=== PATIENT | male | born 1940 | race Caucasian/White ===

== ENCOUNTER 2018-05-14 08:19 | Day surgery (SDC) | payer MEDICARE ==
[~2018-05-14 08:19] MED LIST: ALLOPURINOL100 MG PO; ASPIRIN EC81 MG PO; ATENOLOL25 MG PO; ATIVAN0.5 MG PO; BACITRACIN500 MG/GM OD; ENALAPRIL2.5 MG PO; FLONASE NASAL50 MCG; GABAPENTIN100 MG PO; JANUVIA50 MG PO; KEFLEX500 MG PO; LIPITOR20 M1 PO; METFORMIN500 MG PO; PROAIR HFA IN; TRESIBA FL100 UNIT/M
[2018-05-14 10:47] VITALS: BP 144/67
== END 2018-05-14 11:03 | disposition home or self-care (01) ==
LOC: ENDO 08:19
PROVIDERS: ATTEND Surgery
PROC: 0DBP8ZX Excision of Rectum, Via Natural or Artificial Opening Endoscopic, Diagnostic (ICD-10-PCS; principal; 2018-05-14)
PROC: 0DBL8ZX Excision of Transverse Colon, Via Natural or Artificial Opening Endoscopic, Diagnostic (ICD-10-PCS; 2018-05-14)
PROC: 0DBN8ZX Excision of Sigmoid Colon, Via Natural or Artificial Opening Endoscopic, Diagnostic (ICD-10-PCS; 2018-05-14)
DX: C20 Malignant neoplasm of rectum (principal); D12.5 Benign neoplasm of sigmoid colon; D12.3 Benign neoplasm of transverse colon; E11.9 Type 2 diabetes mellitus without complications

== ENCOUNTER 2018-08-07 06:09 | Emergency (ER) | payer MEDICARE ==
[~2018-08-07] VITALS: Ht 175.3 cm; Wt 100.0 kg
[~2018-08-07 06:09] MED LIST changes: -TRESIBA FL100 UNIT/M; +TRESIBA FL100 UNIT/M SC
[2018-08-07 07:10] LABS: HEMATOCRIT 42.4 % (39.0-50.0); HEMOGLOBIN 14.2 g/dl (14.0-18.0); IMMATURE GRANULOCYTES 0.3 % (0.0-5.0); MEAN CELL VOLUME 100.5 fL CALC (80.0-100.0); MEAN CORPUSCULAR HGB 33.6 pG CALC (26.0-32.0); MEAN CORPUSCULAR HGB CONC 33.5 g/L CALC (32.0-36.0); NEUT# 4.49 thou/uL (1.82-7.42); RED BLOOD COUNT 4.22 mill/uL (4.70-6.10); RED CELL DISTRI WIDTH 12.4 % (11.5-15.5)
[2018-08-07 07:11] LABS: URINE BILIRUBIN - DIPSTICK NEGATIVE (NEGATIVE); URINE BLOOD DIPSTICK NEGATIVE (NEGATIVE); URINE COLOR YELLOW; URINE GLUCOSE - DIPSTICK NEGATIVE (NEGATIVE); URINE KETONE NEGATIVE (NEGATIVE); URINE LEUK ESTERASE NEGATIVE (NEGATIVE); URINE NITRITE - DIPSTICK NEGATIVE (Negative); URINE PH 5.5 (4.5-8.0); URINE PROTEIN - DIPSTICK NEGATIVE (NEG-TRACE); URINE UROBILINOGEN - DIPSTICK 0.2 E.U./dL (0.2)
[2018-08-07 07:28] LABS: ALBUMIN 3.7 g/dL (3.2-5.0); BILIRUBIN, TOTAL 0.7 mg/dL (0.0-1.4); CREATININE 1.5 mg/dL (0.7-1.3); TOTAL PROTEIN 6.9 g/dL (6.3-8.2)
[2018-08-07 07:29] LABS: POTASSIUM 4.9 mmol/l (3.5-5.1)
[2018-08-07] MEDS ORDERED: LOSARTAN POTASS50 MG PO (08:39)
[2018-08-07] MEDS ORDERED: INHALER IN (08:41)
[2018-08-07] MEDS ORDERED: ULTRAM50 MG PO (10:09)
[2018-08-07 10:25] VITALS: BP 167/72
== END 2018-08-07 10:25 | disposition home or self-care (01) ==
LOC: ED 06:09
PROVIDERS: Family Medicine
DX: M25.552 Pain in left hip (principal); M54.5 Low back pain; E11.9 Type 2 diabetes mellitus without complications

== ENCOUNTER 2018-11-13 18:04 | Emergency (ER) | payer MEDICARE ==
[~2018-11-13] VITALS: Ht 175.3 cm; Wt 100.9 kg
[~2018-11-13 18:04] MED LIST changes: +INHALER IN; +LOSARTAN POTASS50 MG PO; +ULTRAM50 MG PO
[2018-11-13 19:15] LABS: IMMATURE GRANULOCYTES 0.9 % (0.0-5.0); MEAN CELL VOLUME 101.8 fL CALC (80.0-100.0); MEAN CORPUSCULAR HGB 31.1 pG CALC (26.0-32.0); MEAN CORPUSCULAR HGB CONC 30.5 g/L CALC (32.0-36.0); NEUT# 7.27 thou/uL (1.82-7.42); RED BLOOD COUNT 2.19 mill/uL (4.70-6.10); RED CELL DISTRI WIDTH 12.9 % (11.5-15.5)
[2018-11-13 19:19] LABS: HEMATOCRIT 22.3 % (39.0-50.0)
[2018-11-13 19:20] LABS: HEMOGLOBIN 6.8 g/dl (14.0-18.0)
[2018-11-13 19:28] LABS: ALBUMIN 3.8 g/dL (3.2-5.0); BILIRUBIN, TOTAL 0.3 mg/dL (0.0-1.4); CREATININE 1.5 mg/dL (0.7-1.3); TOTAL PROTEIN 6.6 g/dL (6.3-8.2)
[2018-11-13] MEDS ORDERED: PLAVIX75 MG PO (20:27)
[2018-11-13 21:06] VITALS: BP 168/73
[2018-11-13 21:33] LABS: URINE BILIRUBIN - DIPSTICK NEGATIVE (NEGATIVE); URINE BLOOD DIPSTICK NEGATIVE (NEGATIVE); URINE COLOR YELLOW; URINE GLUCOSE - DIPSTICK 100 mg/dL (NEGATIVE); URINE KETONE NEGATIVE (NEGATIVE); URINE LEUK ESTERASE NEGATIVE (NEGATIVE); URINE NITRITE - DIPSTICK NEGATIVE (Negative); URINE PROTEIN - DIPSTICK NEGATIVE (NEG-TRACE); URINE SPECIFIC GRAVITY 1.015; URINE UROBILINOGEN - DIPSTICK 0.2 E.U./dL (0.2)
== END 2018-11-13 21:05 ==
LOC: ED 18:04
PROVIDERS: Family Medicine
DX: K92.2 Gastrointestinal hemorrhage, unspecified (principal); D50.0 Iron deficiency anemia secondary to blood loss (chronic); R42 Dizziness and giddiness; Z85.038 Personal history of other malignant neoplasm of large intestine; E11.9 Type 2 diabetes mellitus without complications; Z79.4 Long term (current) use of insulin
CPT/HCPCS: S0164

== ENCOUNTER 2019-04-29 08:20 | Day surgery (SDC) | payer MEDICARE ==
[~2019-04-29] VITALS: Ht 175.3 cm; Wt 98.9 kg
[~2019-04-29 08:20] MED LIST changes: +BREO ELLIPTA1 INH PO; +PAIN RELIEF EX500 M1 PO; +PLAVIX75 MG PO
[2019-04-29 10:46] VITALS: BP 131/63
== END 2019-04-29 11:03 | disposition home or self-care (01) ==
LOC: ENDO 08:20
PROVIDERS: ATTEND Surgery
PROC: 0DBP8ZX Excision of Rectum, Via Natural or Artificial Opening Endoscopic, Diagnostic (ICD-10-PCS; principal; 2019-04-29)
PROC: 3E0H8GC Introduction of Other Therapeutic Substance into Lower GI, Via Natural or Artificial Opening Endoscopic (ICD-10-PCS; 2019-04-29)
DX: K62.1 Rectal polyp (principal); Z85.048 Personal history of other malignant neoplasm of rectum, rectosigmoid junction, and anus

== ENCOUNTER 2020-03-15 07:35 | Observation (INO) | payer MEDICARE ==
[~2020-03-15] VITALS: Ht 175.3 cm; Wt 95.3 kg
[~2020-03-15 07:35] MED LIST changes: -ATENOLOL25 MG PO; +ATENOLOL50 MG PO; -GABAPENTIN100 MG PO; +GABAPENTIN600 MG PO; +LIPITOR10 M1 PO; -LIPITOR20 M1 PO
--- NOTE | 2020-03-15 07:37 | NUR ---
PT TO ROOM VIA RUKHSANA; AT BEDSIDE
[2020-03-15 08:09] LABS: HEMATOCRIT 48.8 % (39.0-50.0); HEMOGLOBIN 15.5 g/dl (14.0-18.0); IMMATURE GRANULOCYTES 0.3 % (0.0-5.0); MEAN CELL VOLUME 98.8 fL CALC (80.0-100.0); MEAN CORPUSCULAR HGB 31.4 pG CALC (26.0-32.0); MEAN CORPUSCULAR HGB CONC 31.8 g/dL CAL (32.0-36.0); NEUT# 5.21 thou/uL (1.82-7.42); RED BLOOD COUNT 4.94 mill/uL (4.70-6.10); RED CELL DISTRI WIDTH 12.5 % (11.5-15.5)
[2020-03-15 08:10] LABS: ALKALINE PHOSPHATASE 146 u/l (38-126); ANION GAP 14 (6-22 (CALC)); BUN 20 mg/dL (8-23); BUN/CREATININE RATIO 15 (12-20 (CALC)); CARBON DIOXIDE 25 mmol/l (22-30); CHLORIDE 102 mmol/l (95-108); CREATININE 1.4 mg/dL (0.7-1.3); GFR 49 ML/MIN (>=60 (CALC)); GFR FOR AFR.AMER. 59 ML/MIN (>=60 (CALC)); LIPASE 114 u/l (23-300); POTASSIUM 4.5 mmol/l (3.5-5.1); SGOT/AST 27 u/l (19-48); SODIUM 136 mmol/l (137-146); TOTAL PROTEIN 7.5 g/dL (6.3-8.2)
[2020-03-15 08:11] LABS: BILIRUBIN, TOTAL 0.9 mg/dL (0.0-1.4)
--- NOTE | 2020-03-15 08:16 | NUR ---
PT MEDICATED FOR LT CHEST PAIN THAT INCREASES TO 10/10 WITH MOVEMENT OR DEEP INSPIRATION. SKIN PWD. VSS. AT BEDSIDE
--- NOTE | 2020-03-15 09:04 | NUR ---
PT RESTING, NO NEW COMPLAINTS CALL MARTINEZ WITHIN REACH, PAIN IMPROVED SINCE MEDICATED PER PT
[2020-03-15] MEDS ORDERED: PLAVIX75 MG PO (09:07)
[2020-03-15] MEDS ORDERED: STIOLTO RESPIMA1 AER IN (09:07)
--- NOTE | 2020-03-15 10:02 | NUR ---
RECIEVED REPORT FROM SCOT
--- NOTE | 2020-03-15 10:30 | NUR ---
AFTER COLLECTION OF SECOND SET OF BC, ANTIBIOTIC INFUSIONS STARTED. PT TOLERATING WELL WITH NO REACTIONS, VITALS STABLE. AOX4. UPON REASSESSMENT, STATES PAIN 0/10 NOTIFIED OF PLAN OF CARE AND WAIT TIME. CALL LIGHT WITHIN REACH. WILL CONTINUE TO MONITOR.
--- NOTE | 2020-03-15 11:17 | NUR ---
ATTEMPTED TO CALL FOR REPORT BUT NURSE IS OCCUPIED. SHE STATES THAT SHE WILL RETURN CALL KHUSHBU
--- NOTE | 2020-03-15 11:27 | NUR ---
GAVE REPORT TO MED SURG NURSE, INFUSIONS COMPLETED.
--- NOTE | 2020-03-15 11:36 | NUR ---
PT ARRIVED FROM ER VIA STRETCHER ACCOMPANIED BY STAFF. WITH IV SITE INTACT TELE MONITOR IN PLACE. ABLE TO AMBULATE TO THE BED.
--- NOTE | 2020-03-15 11:41 | NUR ---
PT TRANSPORTED TO [facility] SURG STABLE AND IN NO DISTRESS. CARE ASSUMED TO INEZ Admission Note Report Given to: INEZ Transported by: Wheelchair X Stretcher Transported with: X Nurse Transporter X Patent IV X O2 X Manager Sales Location: ICU X MS2
[2020-03-15 11:42] VITALS: BP 110/67
--- NOTE | 2020-03-15 12:00 | NUR ---
ASSESSMENT IS COMPLETED: IV SITE IS FREE FROM REDNESS OR EDEMA. HR IS REG,PULSES ARE STRONG X4, ABD IS SOFT WITH ACTIVE BS BREATH SOUNDS ARE CLEAR,BILATERALLY., NO C/O CHEST PRESSURE OR PAIN AT THIS TIME. TELE MONITOR IN PLACE. CONTINUE TO OSBERVE AND MONITOR.
--- NOTE | 2020-03-15 12:15 | NUR ---
PT IS SITTING ON THE SIDE OF THE BED AND EATING LUNCH. CONTINUE TO OBSERVE AND MONITOR.
--- NOTE | 2020-03-15 14:21 | NUR ---
PT SPOUSE IN THE ROOM. DRESSING ON THE CHIN IS DRY DRESSING AND RECOMMENED THE PAPER TAPE BUT WILL NOT STICK. FAMILY HAD TO USE BANDAIDS.
[2020-03-15 15:00] VITALS: BP 136/79
--- NOTE | 2020-03-15 16:00 | NUR ---
PT IS RELAXING IN BED WITH NO DISTRESS NOTED. IV SITE IS FREE FROM REDNESS OR EDEMA.
[2020-03-15 19:00] VITALS: BP 139/73
--- NOTE | 2020-03-15 20:34 | NUR ---
PT C/O CP, V/S ASSESSED AND EKG ORDERED
[2020-03-15 20:40] VITALS: BP 155/82
--- NOTE | 2020-03-15 21:10 | NUR ---
V/S ARE STABLE AT THIS TIME, EKG RESULTS COMPARED TO EARLIER EKG AND REVIEWED WITH ED PHYSICIAN, NO NOTED CHANGES OR CONCERNS PER ED PHYSICIAN. WILL CONTINUE TO MONITOR PT.
--- NOTE | 2020-03-15 23:17 | NUR ---
PT SLEEPING SOUNDLY, NOT S/O DISTRESS NOTED.
[2020-03-15 23:36] VITALS: BP 148/55
[2020-03-16 00:02] VITALS: BP 149/68
[2020-03-16 03:55] VITALS: BP 168/70
--- NOTE | 2020-03-16 03:55 | NUR ---
LAB IN W/PT AT THIS TIME. NO S/O DISTRESS NOTED, PT WAS SLEEPING SOUNDLY, IV IS POSITIONAL, I ENTERED TO REMIND PT TO STRAIGHTEN OUT HIS ARM FOR IVF.
[2020-03-16 04:35] VITALS: BP 145/69
[2020-03-16 05:44] LABS: CHOLESTEROL HDL RATIO 3.2 (<4.4 (CALC)); MAGNESIUM 2.3 mg/dL (1.6-2.3)
--- NOTE | 2020-03-16 06:12 | NUR ---
PT MEDICATED ORDERS PROVIDE, PT WAS SLEEPING SOUNDLY, AWOKE TO MY VOICE.
[2020-03-16 07:48] VITALS: BP 127/72
--- NOTE | 2020-03-16 07:48 | NUR ---
RECIEVED REPORT FROM CLIF GTZ. PT SITTING UP ON SIDE OF BED UPON ENTERING ROOM. INTRODUCED SELF TO PT AND DISCUSSED POC. ASSESSMENT AND VITALS COMPLETED AT THIS TIME. RESPIRATIONS ARE EVEN AND UNLABORED WITH NO SIGNS OF DISTRESS. LUNG SOUNDS ARE CLEAR. HEART RHYTHM IS NORMAL WITH TELE IN PLACE. BOWEL SOUNDS ARE ACTIVE IN ALL QUADRANTS WITH NO TENDERNESS. ABD APPEARS TO BE FIRM AND DISTRESSED, LAST REPORTED BM 03/14/20. PT REFUSED ANYTHING TO ASSIST WITH BM . ARDIAL AND PEDAL PULSES ARE STRONG WITH NORMAL CAPILLARY REFILL. #20 IN RAC RUNNING WITH NS AT 75ML ORDERED, SITE APEARS HEALTHY AND PATENT. PT COMPLAINS OF 1/10 PAIN IN LOWER BACK, PT REFUSED ANY PAIN MEDICATION. ALL SAFETY PRECAUTIONS ARE IN PLACE WITH CALL LIGHT IN REACH. WILL CONTINUE TO MONITOR
--- NOTE | 2020-03-16 08:12 | NUR ---
DR GODINEZ AT BEDSIDE DISSCUSSING POC WITH PT
[2020-03-16] MEDS ORDERED: ZITHROMAX250 MG PO ×2 (09:53→09:59)
[2020-03-16 11:13] VITALS: BP 141/73
--- NOTE | 2020-03-16 11:42 | NUR ---
EDUCATED PT ON DISCHARGE INSTRUCTIONS AND NEW MEDICATION ZITHRO. PT VERBALIZED UNDERSTADING. IV REMOVED. CATHATER STILL INTACT. PT REQUESTED TO EAT LUNCH WHILE WAITING FOR DAUGHTER FOR TRANSPORTATION. PT SITTING ON BEDSIDE EATING LUNCH. RESPIRATIONS ARE EVEN AND UNLABORED WITH NO SIGNS OF DISTRESS. ALL SAFETY PREACUTIONS REMAIN IN PLACE WITH CALL LIGTH IN REACH. WILL CONTINUE TO MONITOR
--- NOTE | 2020-03-16 12:20 | NUR ---
Discharge instructions given. Patient verbalizes understanding of same. Discharged in stable condition via Wheelchair to Home with staff. All belongings sent with pt. PT DISCHARGED VIA WHEELCHAIR ACCOMPAINED BY JOSHUA MELTON IN STABLE CONDITION. PT LEFT WITH ALL BELONGINGS AND DISCHARGE INSTRUCTIONS.
== END 2020-03-16 12:21 | disposition home or self-care (01) ==
LOC: ED 07:35 → ED-I 09:50 → ED 10:04 → MS2 10:05
PROVIDERS: Family Medicine; Nurse Practitioner; ADMIT Internal Medicine; ATTEND Internal Medicine
DX: R07.9 Chest pain, unspecified (principal); J18.9 Pneumonia, unspecified organism; I12.9 Hypertensive chronic kidney disease with stage 1 through stage 4 chronic kidney disease, or unspecified chronic kidney disease; J44.0 Chronic obstructive pulmonary disease with (acute) lower respiratory infection; R91.8 Other nonspecific abnormal finding of lung field; C44.90 Unspecified malignant neoplasm of skin, unspecified; E11.22 Type 2 diabetes mellitus with diabetic chronic kidney disease; N18.3 Chronic kidney disease, stage 3 (moderate); E78.5 Hyperlipidemia, unspecified; Z79.4 Long term (current) use of insulin; Z85.038 Personal history of other malignant neoplasm of large intestine; Z95.820 Peripheral vascular angioplasty status with implants and grafts; Z87.891 Personal history of nicotine dependence; Z20.828 Contact with and (suspected) exposure to other viral communicable diseases
CPT/HCPCS: G0378; Q9967

== ENCOUNTER 2020-05-22 14:53 | Observation (INO) | payer MEDICARE ==
[~2020-05-22] VITALS: Ht 175.3 cm; Wt 94.0 kg
[~2020-05-22 14:53] MED LIST changes: +STIOLTO RESPIMA1 AER IN; +ZITHROMAX250 MG PO
--- NOTE | 2020-05-22 15:06 | NUR ---
PT TO ROOM PER W/C
[2020-05-22 15:24] LABS: HEMATOCRIT 41.5 % (39.0-50.0); HEMOGLOBIN 13.7 g/dl (14.0-18.0); IMMATURE GRANULOCYTES 0.4 % (0.0-5.0); MEAN CELL VOLUME 96.1 fL CALC (80.0-100.0); MEAN CORPUSCULAR HGB 31.7 pG CALC (26.0-32.0); NEUT# 6.12 thou/uL (1.82-7.42); RED BLOOD COUNT 4.32 mill/uL (4.70-6.10); RED CELL DISTRI WIDTH 12.2 % (11.5-15.5)
--- NOTE | 2020-05-22 15:30 | NUR ---
MEDICATED WITH ATIVAN 0.5MG IVP FOR ANXIETY.
[2020-05-22 15:52] LABS: AMYLASE 46 u/l (30-110); D-DIMER 2.01 mg/L (0.19-0.60); LIPASE 57 u/l (23-300)
[2020-05-22 15:54] LABS: ALBUMIN 3.7 g/dL (3.2-5.0); ALKALINE PHOSPHATASE 138 u/l (38-126); ANION GAP 12 (6-22 (CALC)); BILIRUBIN, TOTAL 0.5 mg/dL (0.0-1.4); BUN 18 mg/dL (8-23); BUN/CREATININE RATIO 16 (12-20 (CALC)); CHLORIDE 107 mmol/l (95-108); CREATININE 1.2 mg/dL (0.7-1.3); GFR 58 ML/MIN (>=60 (CALC)); GFR FOR AFR.AMER. > 60 ML/MIN (>=60 (CALC)); POTASSIUM 4.1 mmol/l (3.5-5.1); SGOT/AST 24 u/l (19-48); SODIUM 135 mmol/l (137-146); TOTAL PROTEIN 7.6 g/dL (6.3-8.2)
[2020-05-22 15:58] LABS: CARBON DIOXIDE 20 mmol/l (22-30)
[2020-05-22 16:05] LABS: PROTHROMBIN TIME 10.3 SECONDS (9.0-12.5)
[2020-05-22 16:06] LABS: MYOGLOBIN 64 ng/mL (0 - 121)
--- NOTE | 2020-05-22 16:20 | NUR ---
TO RADIOLOGY IN STABLE CONDITION VIA STRETCHER.
[2020-05-22 16:22] LABS: URINE BILIRUBIN - DIPSTICK NEGATIVE (NEGATIVE); URINE BLOOD DIPSTICK NEGATIVE (NEGATIVE); URINE COLOR YELLOW; URINE GLUCOSE - DIPSTICK NEGATIVE (NEGATIVE); URINE KETONE NEGATIVE (NEGATIVE); URINE LEUK ESTERASE NEGATIVE (NEGATIVE); URINE NITRITE - DIPSTICK NEGATIVE (Negative); URINE PROTEIN - DIPSTICK TRACE mg/dL (NEG-TRACE); URINE UROBILINOGEN - DIPSTICK 0.2 E.U./dL (0.2)
[2020-05-22] MEDS ORDERED: ALLOPURINOL100 MG PO (16:48)
[2020-05-22] MEDS ORDERED: MONTELUKAST SOD10 MG PO (16:49)
[2020-05-22] MEDS ORDERED: PROTONIX20 M1 PO (16:49)
[2020-05-22] MEDS ORDERED: LANTUS100 UNIT/M SC (16:50)
--- NOTE | 2020-05-22 17:25 | NUR ---
MD AT BEDSIDE TO DISCUSS RESULTS AND POC.
--- NOTE | 2020-05-22 17:43 | NUR ---
COVID SWAB COLLECTED, ISOLATION PRECAUTIONS INITIATED.
--- NOTE | 2020-05-22 18:18 | NUR ---
NURSE TO NURSE REPORT CALLED TO ALDO MENEZES.
--- NOTE | 2020-05-22 18:25 | NUR ---
TO ROOM 260 VIA STRETCHER, TELE MONITOR IN PLACE.
--- NOTE | 2020-05-22 18:26 | NUR ---
PT. ARRIVED TO FLOOR VIA STRETCHER. REPORT RECEIVED FROM BINA IN ER. TELE READING PER ER. TELE: SR WITH PVC'S AT 77. PT. STATED IS COLD & TEMP CHECKED : 97.1. A WARM BLANKET PROVIDED. PO FLUIDS OFFERED. SAFETY PRECAUTIONS REINFORCD AND CALL LIGHT WITHIN REACH. WILL MONITOR.
[2020-05-22 18:30] VITALS: BP 187/90
--- NOTE | 2020-05-22 19:30 | NUR ---
PATIENT RESTING IN BED AT THIS TIME-AWAKE ALERT AND ORIENTEDX3. PATIENT WITH NO COMPLAINTS AT THIS TIME. STATES THAT HE CAME IN TODAY FROM HOME AFTER FEELING WEAK AND SOB. PATIENT O2 SAT IS 98% ON ROOM AIR AT THIS TIME. PATIENT ORIENTED TO ROOM AND SURROUNDINGS. INSTRUCTED ON USE OF NURSE CALL LIGHT SYSTEM, TV REMOTE AND PHONE. PATIENT OFFERED TURKEY DINNER BUT DECLINED AT THIS TIME. 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 APPETITE HAS BEEN POOR. SLIGHT SORENESS IN HIS MOUTH. SAFETY PRECAUTIONS REINFORCED. CALL LIGHT IN REACH. WILL CONT TO MONITOR.
[2020-05-22 20:00] VITALS: BP 173/95
--- NOTE | 2020-05-22 22:00 | NUR ---
PATIENT RESTING IN BED-STATES THAT HE IS FEELING BETTER. ADMISSION PROCESS COMPLETED. PATIENT DENIES ANY ALLERGIES. PATIENT DENIES ANY CDUGH. STATES THAT HE HAD A BM TODAY AND DENIES ANY DIFFICULTY WITH URINATION. LUNGS WITH CRACKLES TO VANNA BASES. NO PEDAL EDEMA NOTED AND PULSES ARE PALPABLE. TEDS WERE APPLIED TO BLE. PATIENT OFFERED SNACK-ATE CHOCOLATE PUDDING. PROVIDED WITH APPLE JUICE PER REQUEST. PATIENT RECENTLY HAD RADIATION THERAPY TO HIS CHIN FOR SKIN CANCER. SEES DR. ORDOÑEZ FOR ONCOLOGY-STATES THAT HE WAS ALSO RECENTLY DX WITH LUNG CANCER. APPETITE HAS BEEN POOR. LIVES WITH HIS AT HOME. SAFETY PRECAUTIONS REVIEWED WITH PATIENT. CALL LIGHT IN REACH. WILL CONT TO MONITOR.
[2020-05-23] VITALS (7 sets, daily range): BP systolic 114–159; BP diastolic 67–90
--- NOTE | 2020-05-23 00:53 | NUR ---
PATIENT APPEARS SLEEPING AT THIS TIME POSITIONED ON HIS SIDE WITH HOB SLIGHTLY ELEVATED. EYES ARE CLOSED AND RESPS ARE EVEN AND UNLABORED. TELE MONITOR IN PLACE. SALINE LOCK INTACT TO LAC. CALL LIGHT IN REACH. WILL CONT TO MONITOR.
--- NOTE | 2020-05-23 04:30 | NUR ---
PATIENT RESTING IN BED POSITIONED ON SIDE WITH EYES CLOSED-RESPS ARE EVEN AND UNLABORED. TELE MONITOR IN PL SAUL. SALINE LOCK TO LAC INTACT. CALL LIGHT IN REACH. WILL CONT TO MONTIOR.
[2020-05-23 04:49] LABS: HEMATOCRIT 41.7 % (39.0-50.0); HEMOGLOBIN 13.5 g/dl (14.0-18.0); IMMATURE GRANULOCYTES 0.5 % (0.0-5.0); MEAN CORPUSCULAR HGB 32.1 pG CALC (26.0-32.0); MEAN CORPUSCULAR HGB CONC 32.4 g/dL CAL (32.0-36.0); NEUT# 4.68 thou/uL (1.82-7.42); RED BLOOD COUNT 4.21 mill/uL (4.70-6.10); RED CELL DISTRI WIDTH 12.5 % (11.5-15.5)
[2020-05-23 05:06] LABS: ANION GAP 14 (6-22 (CALC)); BUN 15 mg/dL (8-23); BUN/CREATININE RATIO 14 (12-20 (CALC)); CARBON DIOXIDE 21 mmol/l (22-30); CHLORIDE 107 mmol/l (95-108); CREATININE 1.1 mg/dL (0.7-1.3); GFR > 60 ML/MIN (>=60 (CALC)); GFR FOR AFR.AMER. > 60 ML/MIN (>=60 (CALC)); POTASSIUM 4.1 mmol/l (3.5-5.1); SODIUM 138 mmol/l (137-146)
--- NOTE | 2020-05-23 07:38 | NUR ---
PATEINT IN BED AWAKE AND ALERT/ORIENT X3. PATIENT DENIES ANY PAIN AT THIS TIME. RESPIRATION EASY AND UNLABORED, CRACKLES HEARD IN LOWER LUNG OLSON. PATIENT HAS KYLE HOSE ON AT THIS TIME ALL SAFETY MEASURES ARE IN PLACE CALL LIGHT NEAR. NURSE ASSESSMENT DONE AT THIS TIME SEE INTERVENTIONS.
--- NOTE | 2020-05-23 08:03 | NUR ---
AT BEDSIDE DISCUSSING POC.
--- NOTE | 2020-05-23 08:51 | NUR ---
PT note Patient is screened fro PT intervention and no needs are identified at this time
--- NOTE | 2020-05-23 11:30 | NUR ---
SITTING AT BEDSIDE IN ROOM WITH PATIENT DENIES ANY NEEDS AT THIS TIME. CALL LIGHT WITHIN REACH.
--- NOTE | 2020-05-23 16:14 | NUR ---
PATIENT LAYING IN BED EYES OPEN RESPIRATION EASY AND UNLABORED AT THIS TIME. PATIENT STATES HE IS IN NO PAIN AND DENIES ANY NEEDS AT THIS TIME. SIDERAILS UP X 2 CALL LIGHT WITHIN REACH.
--- NOTE | 2020-05-23 19:30 | NUR ---
PATIENT RESTING IN BED AT THIS TIME POSITIONED ON LEFT WITH EYES CLOSED. RESPS ARE EVEN AND UNLABORED AT THIS TIME.TELE MONITOR IN PLACE. SALINE LOCK TO LAC SITE INTACT AND APPEARS HEALTHY AT THIS TIME. CALL LIGHT IN REACH. WILL CONT TO MONITOR.
--- NOTE | 2020-05-23 22:01 | NUR ---
PATIENT AWAKE ALERT AND ORIENTED. NO COMPLAINTS AT THIS TIME. PATIENT DENIES ANY COUGH. BS-[id number] AT THIS TIME. COVERED WITH NOVALOG PER SLIDING SCALE COVERAGE SCALE. PROVIDED WITH HS SNACK. PATIENT CONT TO HAVE CRACKLES IN THE LUNG BASES. DENIES ANY DIFFICULTY WITH URINATION. NO BM TODAY. LAST BM YESTERDAY 05/22. NO PEDAL EDEMA NOTED. PEDAL PULSE ARE PALPABLE. TEDS IN PLACE. TELE MONITOR IN PLACE. SALINE LOCK TO LAC INTACT WITH GOOD BLOOD RETURN. PATIENT STATES THAT HIS APPETITE FOR DINNER WAS IMPROVED. SAFETY PRECAUTIONS REINFORCED. CALL LIGHT IN REACH. WILL CONT TO MONITOR.
--- NOTE | 2020-05-24 01:40 | NUR ---
PATIENT APPEARS SLEEPING AT THIS TIME WITH EYES CLOSED. RESP ARE EVEN AND UNLABORED. TELE MONITOR IN PLACE. CALL LIGHT IN REACH. WILL CONT TO MONITOR.
--- NOTE | 2020-05-24 04:46 | NUR ---
PATIENT REMAINS SLEEPING WITH EYES CLOSED-RESPS ARE EVEN AND UNLABORED. TELE MONITOR IN PLACE. SALINE LOCK TO LAC INTACT. CALL LIGHT IN REACH. WILL CONT TO MONITOR.
[2020-05-24 05:01] VITALS: BP 151/77
[2020-05-24 05:26] LABS: HEMATOCRIT 43.6 % (39.0-50.0); MEAN CELL VOLUME 98.4 fL CALC (80.0-100.0); MEAN CORPUSCULAR HGB 31.6 pG CALC (26.0-32.0); MEAN CORPUSCULAR HGB CONC 32.1 g/dL CAL (32.0-36.0); RED BLOOD COUNT 4.43 mill/uL (4.70-6.10); RED CELL DISTRI WIDTH 12.1 % (11.5-15.5)
[2020-05-24 06:18] LABS: CREATININE 1.5 mg/dL (0.7-1.3); MAGNESIUM 2.2 mg/dL (1.6-2.3)
[2020-05-24 06:44] LABS: POTASSIUM 5.2 mmol/l (3.5-5.1)
--- NOTE | 2020-05-24 07:25 | NUR ---
PATIENT IN BED AWAKE AND ALERT AND ORIENTED AT THIS TIME. PATIENT DENIES ANY PAIN AT THIS TIME. PATIENT ENCOURAGED TO KEEP HYDRATED AND VERBALIZES UNDERSTANDING OR HYDRATION AND IMPORTANCE. NURSE ASSESSMENT DONE AT THIS TIME SEE INTERVENTIONS. SIDERAILS UP AT THIS TIME CALL LIGHT WITHIN REACH.
[2020-05-24 07:29] VITALS: BP 169/89
--- NOTE | 2020-05-24 08:22 | NUR ---
AT BEDSIDE DISCUSSING POC WITH PT.
[2020-05-24] MEDS ORDERED: SENNA-TABS8.6 MG PO (09:45)
[2020-05-24] MEDS ORDERED: DULCOLAX5 MG PO (09:45)
[2020-05-24] MEDS ORDERED: ZITHROMAX250 MG PO (09:48)
[2020-05-24] MEDS ORDERED: XANAX0.5 MG PO (09:49)
--- NOTE | 2020-05-24 11:35 | NUR ---
PT RESTING IN SEMI FOWLERS POSITION WITH SPOUSE AT BEDSIDE;RESPIRATIONS EVEN AND UNLABORED ON RA;PT DENIES ANY CURRENT PAIN OR DISCOMFORTS;TELE MONITORING IN PLACE;IV SITE PATENT INFUSING NS WITH EASE PER ORDER;ACCUCHECK 231, PT COVERED WITH SLIDING SCALE NOVOLOG PER ORDER;PT MEDICATED WITH PRN XANAX 0.25MG PO AT THIS TIME;PT VERBALIZES UNDERSTANDING ON PLANS TO D/C HOME THIS AFTERNOON;ASSESSMENT REMAINS UNCHANGED AT THIS TIME;ENCOURAGED TO CALL FOR ASSISTANCNCE IF NEEDED;CALL LIGHT IN REACH;WILL CONTINUE TO MONITOR
[2020-05-24 12:15] VITALS: BP 167/83
--- NOTE | 2020-05-24 12:45 | NUR ---
WENT OVER DISCHARGE INSTRUCTIONS WITH PATIENT AT THIS TIME. PATIENT VERBALIZES UNDERSTANDING OF DISCHARGE INSTRUCTIONS.
--- NOTE | 2020-05-24 13:43 | NUR ---
Discharge instructions given. Patient verbalizes understanding of same. Discharged in stable condition via Wheelchair to Home with spouse. All belongings sent with pt. PT TRANSPORTED TO [facility] IN STABLE CONDITION VIA WHEELCHAIR ACCOMPANIED BY CLIF STEEL AND SPOUSE;ALL BELONGINGS LEFT WITH PT.SPOUSE TO TRANSPORT PT HOME.
== END 2020-05-24 13:43 | disposition home or self-care (01) ==
LOC: ED 14:53 → ED-I 15:15 → ED 15:15 → ED-I 17:21 → ED 17:35 → MS2 17:36
PROVIDERS: Nurse Practitioner; ADMIT Internal Medicine; ATTEND Internal Medicine
DX: J18.9 Pneumonia, unspecified organism (principal); E87.3 Alkalosis; J43.9 Emphysema, unspecified; E11.22 Type 2 diabetes mellitus with diabetic chronic kidney disease; I12.9 Hypertensive chronic kidney disease with stage 1 through stage 4 chronic kidney disease, or unspecified chronic kidney disease; N18.30 Chronic kidney disease, stage 3 unspecified; C78.02 Secondary malignant neoplasm of left lung; C78.01 Secondary malignant neoplasm of right lung; K59.00 Constipation, unspecified; E78.5 Hyperlipidemia, unspecified; R06.4 Hyperventilation; F41.9 Anxiety disorder, unspecified; Z79.4 Long term (current) use of insulin; Z85.038 Personal history of other malignant neoplasm of large intestine; Z87.891 Personal history of nicotine dependence; Z20.828 Contact with and (suspected) exposure to other viral communicable diseases
CPT/HCPCS: G0378; J1650; J2060; Q9967

== ENCOUNTER 2020-06-07 02:59 | Emergency (ER) | payer MEDICARE ==
[~2020-06-07] VITALS: Ht 175.3 cm; Wt 95.0 kg
[~2020-06-07 02:59] MED LIST changes: +DULCOLAX5 MG PO; +LANTUS100 UNIT/M SC; +MONTELUKAST SOD10 MG PO; +PROTONIX20 M1 PO; +SENNA-TABS8.6 MG PO; +XANAX0.5 MG PO
[2020-06-07] MEDS ORDERED: METHYLPRED4 MG PO (03:17)
[2020-06-07] MEDS ORDERED: ALPRAZOLAM1 MG PO (03:18)
[2020-06-07 03:31] LABS: HEMATOCRIT 45.6 % (39.0-50.0); HEMOGLOBIN 14.8 g/dl (14.0-18.0); IMMATURE GRANULOCYTES 0.6 % (0.0-5.0); MEAN CELL VOLUME 98.5 fL CALC (80.0-100.0); MEAN CORPUSCULAR HGB CONC 32.5 g/dL CAL (32.0-36.0); NEUT# 11.03 thou/uL (1.82-7.42); RED BLOOD COUNT 4.63 mill/uL (4.70-6.10); RED CELL DISTRI WIDTH 12.3 % (11.5-15.5)
[2020-06-07 03:40] LABS: ALBUMIN 3.6 g/dL (3.2-5.0); ALKALINE PHOSPHATASE 124 u/l (38-126); ANION GAP 15 (6-22 (CALC)); BILIRUBIN, TOTAL 0.4 mg/dL (0.0-1.4); BUN 31 mg/dL (8-23); BUN/CREATININE RATIO 28 (12-20 (CALC)); CARBON DIOXIDE 23 mmol/l (22-30); CHLORIDE 105 mmol/l (95-108); CREATININE 1.1 mg/dL (0.7-1.3); GFR > 60 ML/MIN (>=60 (CALC)); GFR FOR AFR.AMER. > 60 ML/MIN (>=60 (CALC)); LIPASE 202 u/l (23-300); POTASSIUM 4.4 mmol/l (3.5-5.1); SGOT/AST 28 u/l (19-48); SODIUM 138 mmol/l (137-146)
[2020-06-07] MEDS ORDERED: TRAMADOL HYDROC50 MG PO (05:36)
[2020-06-07 05:50] VITALS: BP 162/71
[2020-06-08] MEDS ORDERED: DOXYCYC MONO100 M2 PO (07:50)
[2020-06-08] MEDS ORDERED: LANTUS SOL100 UNIT/M SC (07:51)
== END 2020-06-07 05:50 | disposition home or self-care (01) ==
LOC: ED 02:59
DX: R10.32 Left lower quadrant pain (principal); R06.02 Shortness of breath; R91.1 Solitary pulmonary nodule; F41.9 Anxiety disorder, unspecified; E11.9 Type 2 diabetes mellitus without complications; I10 Essential (primary) hypertension; Z85.828 Personal history of other malignant neoplasm of skin; Z85.038 Personal history of other malignant neoplasm of large intestine; Z85.118 Personal history of other malignant neoplasm of bronchus and lung; Z92.3 Personal history of irradiation; Z79.4 Long term (current) use of insulin
CPT/HCPCS: Q9967

== ENCOUNTER 2020-06-07 20:00 | Observation (INO) | payer MEDICARE ==
[~2020-06-07] VITALS: Ht 175.3 cm; Wt 95.5 kg
[~2020-06-07 20:00] MED LIST changes: +ALPRAZOLAM1 MG PO; +METHYLPRED4 MG PO; +TRAMADOL HYDROC50 MG PO
--- NOTE | 2020-06-07 20:00 | NUR ---
[facility] PATIENT APPEARS IN NO APPARENT DISTRESS AT THIS TIME. MD NOTIFIED OF PATIENT STATUS
--- NOTE | 2020-06-07 20:35 | NUR ---
PT WHEELED TO ROOM # 9 FOR BEDSIDE TRIAGE ACCOMPANIED BY .
--- NOTE | 2020-06-07 20:38 | NUR ---
PATIENT TO ROOM 9 VIA WHEELCHAIR FOR BEDSIDE TRIAGE.
--- NOTE | 2020-06-07 21:00 | NUR ---
PATIENT MEDICATED ORDERED. WILL MONITOR FOR EFFECT.
[2020-06-07 21:33] LABS: HEMATOCRIT 46.5 % (39.0-50.0); IMMATURE GRANULOCYTES 0.9 % (0.0-5.0); MEAN CELL VOLUME 98.9 fL CALC (80.0-100.0); MEAN CORPUSCULAR HGB 31.9 pG CALC (26.0-32.0); MEAN CORPUSCULAR HGB CONC 32.3 g/dL CAL (32.0-36.0); NEUT# 8.05 thou/uL (1.82-7.42); RED BLOOD COUNT 4.7 mill/uL (4.70-6.10); RED CELL DISTRI WIDTH 12.3 % (11.5-15.5)
--- NOTE | 2020-06-07 21:35 | NUR ---
PATIENT RESTING COMFORTABLY. STATES PAIN IS IMPROVED. AT BEDSIDE. AWAITING ALL DIAGNOSTICS AND PLAN OF CARE.
[2020-06-07 21:47] LABS: ALBUMIN 3.9 g/dL (3.2-5.0); ALKALINE PHOSPHATASE 121 u/l (38-126); AMYLASE 98 u/l (30-110); BILIRUBIN, TOTAL 0.5 mg/dL (0.0-1.4); BUN 30 mg/dL (8-23); BUN/CREATININE RATIO 24 (12-20 (CALC)); CHLORIDE 102 mmol/l (95-108); CREATININE 1.3 mg/dL (0.7-1.3); GFR 53 ML/MIN (>=60 (CALC)); GFR FOR AFR.AMER. > 60 ML/MIN (>=60 (CALC)); LIPASE 42 u/l (23-300); SGOT/AST 24 u/l (19-48); SODIUM 139 mmol/l (137-146); TOTAL PROTEIN 7.8 g/dL (6.3-8.2)
[2020-06-07 21:57] LABS: ANION GAP 13 (6-22 (CALC)); CARBON DIOXIDE 28 mmol/l (22-30)
--- NOTE | 2020-06-07 22:15 | NUR ---
URINE SAMPLE COLLECTED AND SENT. PATIENT STATES PAIN IS "OK". WHEN ASKED TO RATE HIS PAIN HE STATES "I CAN'T TELL" PATIENT APPEARS COMFORTABLE, PREFERS TO LAY ON HIS SIDE. PATIENT AND INFORMED OF PLANS TO ADMIT AND POSSIBLE ER HOLD STATUS. VERBALIZES UNDERSTANDING. DENIES ANY QUESTIONS OR CONCERNS.
[2020-06-07 22:35] LABS: URINE BILIRUBIN - DIPSTICK NEGATIVE (NEGATIVE); URINE BLOOD DIPSTICK NEGATIVE (NEGATIVE); URINE COLOR YELLOW; URINE GLUCOSE - DIPSTICK NEGATIVE (NEGATIVE); URINE KETONE NEGATIVE (NEGATIVE); URINE LEUK ESTERASE NEGATIVE (NEGATIVE); URINE NITRITE - DIPSTICK NEGATIVE (Negative); URINE PROTEIN - DIPSTICK 30 mg/dL (NEG-TRACE); URINE SPECIFIC GRAVITY 1.015; URINE UROBILINOGEN - DIPSTICK 0.2 E.U./dL (0.2)
[2020-06-07 22:44] LABS: URINE RBC 0-2 RBC/hpf (0-5)
[2020-06-07 22:45] LABS: URINE BACTERIA FEW hpf; URINE EPITHELIAL CELLS FEW EPI/hpf (0-FEW)
--- NOTE | 2020-06-07 23:03 | NUR ---
PATIENT TO ER HOLD BED 13. PLACED ON HOSPITAL BED. PATIENT STATES PAIN IS "OK" BUT IS UNABLE TO RATE. PREFERS TO LAY ON HIS SIDE.
--- NOTE | 2020-06-07 23:03 | NUR ---
PATIENT MOVED TO ROOM 13 AND PLACED IN A HOSPITAL BED. PATIENT AWARE OF ADMISSION AND ER HOLD STATUS.
[2020-06-07 23:05] VITALS: BP 140/85
[2020-06-08] VITALS (7 sets, daily range): BP systolic 120–156; BP diastolic 56–78
--- NOTE | 2020-06-08 03:10 | NUR ---
PATIENT INQUIRING ABOUT WHAT HAPPENS IF HE NEEDS TO GO TO BATHROOM. OFFERED A URINAL AND PATIENT DECLINED. STATES HE IS REFERRING TO HAVING A BM. PATIENT THEN OFFERED TO GO TO BATHROOM AND STATES HE DOESN'T NEED TO GO RIGHT NOW. PATIENT POSITIONED FOR COMFORT. LIGHTS DIMMED, CALL LIGHT WITHIN REACH.
[2020-06-08 04:00] LABS: HEMATOCRIT 46.6 % (39.0-50.0); HEMOGLOBIN 14.8 g/dl (14.0-18.0); IMMATURE GRANULOCYTES 0.6 % (0.0-5.0); MEAN CELL VOLUME 100.2 fL CALC (80.0-100.0); MEAN CORPUSCULAR HGB 31.8 pG CALC (26.0-32.0); MEAN CORPUSCULAR HGB CONC 31.8 g/dL CAL (32.0-36.0); NEUT# 7.69 thou/uL (1.82-7.42); RED BLOOD COUNT 4.65 mill/uL (4.70-6.10); RED CELL DISTRI WIDTH 12.5 % (11.5-15.5)
[2020-06-08 04:14] LABS: ALBUMIN 3.5 g/dL (3.2-5.0); ALKALINE PHOSPHATASE 124 u/l (38-126); BILIRUBIN, TOTAL 0.6 mg/dL (0.0-1.4); BUN 27 mg/dL (8-23); BUN/CREATININE RATIO 22 (12-20 (CALC)); CARBON DIOXIDE 27 mmol/l (22-30); CHLORIDE 105 mmol/l (95-108); CREATININE 1.2 mg/dL (0.7-1.3); GFR 58 ML/MIN (>=60 (CALC)); GFR FOR AFR.AMER. > 60 ML/MIN (>=60 (CALC)); SGOT/AST 20 u/l (19-48); SODIUM 140 mmol/l (137-146); TOTAL PROTEIN 6.8 g/dL (6.3-8.2)
--- NOTE | 2020-06-08 04:18 | NUR ---
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 PATIENT IS HYPERVENTILATING AND APPEARS ANXIOUS. STATES HE FEELS DIZZY. INFORMED PATIENT TO SLOW RESPIRATIONS AND BECAUSE HE FEELS DIZZY THAT GETTING UP SHOULD BE AVOIDED AND URINAL WAS THE BEST ROUTE. PATIENT ACCEPTED URINAL. MD NOTIFIED OF PATIENT STATUS. AND AWAITING ORDERS.
[2020-06-08 04:28] LABS: ANION GAP 12 (6-22 (CALC)); POTASSIUM 4.1 mmol/l (3.5-5.1)
--- NOTE | 2020-06-08 05:10 | NUR ---
PATIENT MEDICATED WITH GI COCKTAIL. PATIENT REMAINS ANXIOUS AND HYPERVENTILATING. PATIENT FEELS THOUGH HE CAN NOT BREATH. O2 SAT IN THE UPPER 90S. PATIENT PLACED ON 2L VIA NC FOR COMFORT. WILL CONTINUE TO MONITOR.
--- NOTE | 2020-06-08 05:28 | NUR ---
PATIENT APPEARS COMFORTABLE, RESPIRATIONS ARE UNLABORED. PATIENT EYES CLOSED. O2 SAT 100%.
--- NOTE | 2020-06-08 07:00 | NUR ---
RECIEVED FOR CARE,STACLE. RESTING QUIETLY. STATES HE FEELS BETTER. CALL MARTINEZ AVAILABLE. BED IN LOW POSITION.
[2020-06-08] MEDS ORDERED: DOXYCYC MONO100 M2 PO (07:50)
[2020-06-08] MEDS ORDERED: LANTUS SOL100 UNIT/M SC (07:51)
--- NOTE | 2020-06-08 08:58 | NUR ---
called in , updated on status nd current visitation restrictions.
--- NOTE | 2020-06-08 09:28 | NUR ---
DR. ELIAS AT BEDSIDE TO ROUND.
--- NOTE | 2020-06-08 10:20 | NUR ---
DR PASCAL TO BEDSIDE O DISCUSS RESULTS AND PLAN OF CARE.
--- NOTE | 2020-06-08 10:35 | NUR ---
FLU AND COVID CULTURES OF NARES COLLECTED AND SENT TO LAB.
--- NOTE | 2020-06-08 10:40 | NUR ---
patient aware of pending dc. Opportunity for questions given.
--- NOTE | 2020-06-08 10:45 | NUR ---
patient on isolation
--- NOTE | 2020-06-08 11:37 | NUR ---
warm blanket for comfort.
--- NOTE | 2020-06-08 13:23 | NUR ---
FIRST DOSE OF GASTROGRAFIN GIVEN WITH 240ML GATORADE. PT TOLERATED WITHOUT DIFFICULTY.
--- NOTE | 2020-06-08 15:05 | NUR ---
REPORT REC FROM MARIANA MENEZES
--- NOTE | 2020-06-08 15:12 | NUR ---
transferred to [place] VIA BED. STABLE,IV INTACT
--- NOTE | 2020-06-08 15:40 | NUR ---
PT ARRVIED VIA BED ACCOMPANIED BY MARIANA MENEZES. A&O X3. NO DISTRESS NOTED. ABD DISTENDED IN APPEARANCE, PT REPORTS SOME DISCOMFORT IN ABD. PT TO BE TAKEN DOWN TO CT. IVF CONNECTED AT 125 ML/HR. PT PALE IN APPEARANCE. ASSESSMENT COMPLETED. DISCUSSED POC. CALL LIGHT IN REACH. CONTINUE TO MONITOR.
--- NOTE | 2020-06-08 16:21 | NUR ---
PT ARRIVED BACK FROM CT
--- NOTE | 2020-06-08 19:30 | NUR ---
PATIENT RESTING IN BED POSITIONED ON HIS LEFT SIDE WITH EYES CLOSED. APPEARS SLEEPING. RESP ARE EVEN AND UNLABORED. TELE MONITOR IN PLACE. IVF PATENT AND INFUSING VIA LAC ORDERED. CALL LIGHT IN REACH. WILL CONT TO MONITOR.
--- NOTE | 2020-06-08 21:01 | NUR ---
PATIENT RESTING IN BED AT THIS TIME. AWAKE ALERT AND ORIENTEDX3. PATIENT C/O FEELING WEAK. DECLINES ANY PAIN MEDS AT THIS TIME. TELE MONITOR IN PLACE. IV SITE TO LEFT AC INTACT WITH IVF NS PATENT AND INFUSING AT 125CC/HR. SITE IS HEALTHY AT THIS TIME. ACCU-CHECK TONIGHT 81-PATIENT TAKING SMALL AMTS OF CLEAR LIQUIDS. PATIENT ASSIST OOB TO THE BR TO VOID AND THEN BACK TO BED. ABD IS DISTENDED WITH BS+. SAFETY PRECAUTIONS REINFORCED. CALL LIGHT IN REACH. WILL CONT TO MONITOR.
--- NOTE | 2020-06-08 23:47 | NUR ---
PATIENT RESTING IN BED-POSITIONED ON LEFT SIDE. EYES CLOSED AND APPEARS SLEEPING. RESPS EVEN AND UNLABORED. IVF PATENT AND INFUISING VIA LEFT AC SITE ORDERED. CALL LIGHT IN REACH. WILL CONT TO MONITOR.
[2020-06-09] VITALS: BP 133/72
[2020-06-09 03:27] VITALS: BP 124/68
--- NOTE | 2020-06-09 04:40 | NUR ---
PATIENT RESTING IN BED AT THIS TIME-APPEARS SLEEPING WITH EYES CLOSED. RESP ARE EVEN AND UNLABORED. TELE MONITOR IN PLACE. IVF PATENT AND INFUSING VIA LAC SITE. CALL LIGHT IN REACH. WILL CONT TO MONITOR.
[2020-06-09 07:45] VITALS: BP 144/74
--- NOTE | 2020-06-09 07:45 | NUR ---
ASSESSMENT IS COMPLETED: IV SITE IS FREE FROM REDNESS OR EDEMA. HR IS REG,PULSES ARE STRONG X4, ABD IS DISTENDED AND SOFT. HAD A SMALL BM. HYPER BS, BREATH SOUNDS ARE CLEAR AND DIMINISHED. TELE MONITOR # [id number]. ON PLACE..
--- NOTE | 2020-06-09 08:53 | NUR ---
DR ELIAS IN TO VISIT WITH PT
[2020-06-09 11:28] VITALS: BP 126/52
[2020-06-09 15:43] VITALS: BP 156/77
[2020-06-09] MEDS ORDERED: CARAFATE1 GM PO (18:41)
[2020-06-09] MEDS ORDERED: METRONIDAZOL500 MG PO (18:41)
[2020-06-09] MEDS ORDERED: PROTONIX40 M2 PO (18:41)
[2020-06-09] MEDS ORDERED: [UNRECOGNIZED DRUG - OTHER] PO (18:41)
[2020-06-09] MEDS ORDERED: Levaquin PO (18:41)
[2020-06-09 19:00] VITALS: BP 150/84
--- NOTE | 2020-06-09 19:55 | NUR ---
IV site discontinued, cath intact. No edema , no redness, voices no discomfort.
--- NOTE | 2020-06-09 20:23 | NUR ---
Discharge instructions given. Patient verbalizes understanding of same. Discharged in stable condition via Wheelchair to Home with spouse. All belongings sent with pt.
== END 2020-06-09 20:00 | disposition home or self-care (01) ==
LOC: ED 20:00 → ED-I 23:04 → ED 23:15 → ED-I 23:16 → MS2 06-08 13:26
PROVIDERS: ADMIT Internal Medicine; ATTEND Internal Medicine
DX: R10.12 Left upper quadrant pain (principal); C34.92 Malignant neoplasm of unspecified part of left bronchus or lung; C79.9 Secondary malignant neoplasm of unspecified site; J18.9 Pneumonia, unspecified organism; J44.0 Chronic obstructive pulmonary disease with (acute) lower respiratory infection; F41.9 Anxiety disorder, unspecified; R74.02 Elevation of levels of lactic acid dehydrogenase [LDH]; I12.9 Hypertensive chronic kidney disease with stage 1 through stage 4 chronic kidney disease, or unspecified chronic kidney disease; E11.22 Type 2 diabetes mellitus with diabetic chronic kidney disease; N18.30 Chronic kidney disease, stage 3 unspecified; E78.5 Hyperlipidemia, unspecified; I25.10 Atherosclerotic heart disease of native coronary artery without angina pectoris; Z79.02 Long term (current) use of antithrombotics/antiplatelets; Z95.820 Peripheral vascular angioplasty status with implants and grafts; Z87.01 Personal history of pneumonia (recurrent); Z92.3 Personal history of irradiation; Z85.828 Personal history of other malignant neoplasm of skin; Z87.891 Personal history of nicotine dependence; Z85.048 Personal history of other malignant neoplasm of rectum, rectosigmoid junction, and anus; Z20.828 Contact with and (suspected) exposure to other viral communicable diseases
CPT/HCPCS: Q9967; S0164

== ENCOUNTER 2020-08-07 09:42 | Emergency (ER) | payer MEDICARE ==
[~2020-08-07] VITALS: Ht 175.3 cm; Wt 90.0 kg
[~2020-08-07 09:42] MED LIST changes: +CARAFATE1 GM PO; +DOXYCYC MONO100 M2 PO; +LANTUS SOL100 UNIT/M SC; +Levaquin PO; +METRONIDAZOL500 MG PO; +PROTONIX40 M2 PO; +[UNRECOGNIZED DRUG - OTHER] PO
[2020-08-07 10:30] LABS: HEMATOCRIT 38.1 % (39.0-50.0); IMMATURE GRANULOCYTES 0.3 % (0.0-5.0); MEAN CELL VOLUME 99.7 fL CALC (80.0-100.0); MEAN CORPUSCULAR HGB 31.4 pG CALC (26.0-32.0); MEAN CORPUSCULAR HGB CONC 31.5 g/dL CAL (32.0-36.0); NEUT# 5.3 thou/uL (1.82-7.42); RED BLOOD COUNT 3.82 mill/uL (4.70-6.10); RED CELL DISTRI WIDTH 14.6 % (11.5-15.5)
[2020-08-07 10:45] LABS: ALBUMIN 3.5 g/dL (3.2-5.0); ALKALINE PHOSPHATASE 118 u/l (38-126); AMYLASE 70 u/l (30-110); ANION GAP 12 (6-22 (CALC)); BILIRUBIN, TOTAL 0.6 mg/dL (0.0-1.4); BUN 24 mg/dL (8-23); BUN/CREATININE RATIO 25 (12-20 (CALC)); CARBON DIOXIDE 23 mmol/l (22-30); CHLORIDE 108 mmol/l (95-108); GFR > 60 ML/MIN (>=60 (CALC)); GFR FOR AFR.AMER. > 60 ML/MIN (>=60 (CALC)); LIPASE 63 u/l (23-300); POTASSIUM 4.8 mmol/l (3.5-5.1); SGOT/AST 33 u/l (19-48); SODIUM 138 mmol/l (137-146)
[2020-08-07 10:56] LABS: MYOGLOBIN 47 ng/mL (0 - 121)
[2020-08-07] MEDS ORDERED: HYDROCODONE BIT1 TA7 PO (12:06)
[2020-08-07] MEDS ORDERED: IS-ZC 50 50 MG1 TAB (12:06)
[2020-08-07] MEDS ORDERED: TYLENOL PM PO (12:07)
[2020-08-07] MEDS ORDERED: D3 HIGH POT5000 UNIT (12:07)
[2020-08-07] MEDS ORDERED: ASPIRIN81 MG PO (12:08)
[2020-08-07 13:37] LABS: URINE BILIRUBIN - DIPSTICK NEGATIVE (NEGATIVE); URINE BLOOD DIPSTICK NEGATIVE (NEGATIVE); URINE COLOR YELLOW; URINE GLUCOSE - DIPSTICK NEGATIVE (NEGATIVE); URINE KETONE NEGATIVE (NEGATIVE); URINE LEUK ESTERASE NEGATIVE (NEGATIVE); URINE NITRITE - DIPSTICK NEGATIVE (Negative); URINE PH 6.5 (4.5-8.0); URINE PROTEIN - DIPSTICK NEGATIVE (NEG-TRACE); URINE UROBILINOGEN - DIPSTICK 0.2 E.U./dL (0.2)
[2020-08-07] MEDS ORDERED: ZITHROMAX250 MG PO (14:50)
[2020-08-07] MEDS ORDERED: ONDANSETRON4 MG PO (14:50)
[2020-08-07 15:27] VITALS: BP 166/76
== END 2020-08-07 15:31 | disposition home or self-care (01) ==
LOC: ED 09:42
PROVIDERS: Emergency Medicine
DX: R10.33 Periumbilical pain (principal); J18.9 Pneumonia, unspecified organism; C34.92 Malignant neoplasm of unspecified part of left bronchus or lung; I10 Essential (primary) hypertension; E11.9 Type 2 diabetes mellitus without complications; Z85.038 Personal history of other malignant neoplasm of large intestine; Z79.899 Other long term (current) drug therapy; Z85.828 Personal history of other malignant neoplasm of skin; Z92.3 Personal history of irradiation; Z79.4 Long term (current) use of insulin; Z20.822 Contact with and (suspected) exposure to COVID-19
CPT/HCPCS: Q9967

== ENCOUNTER 2020-08-09 09:42 | Inpatient (IN) | payer MEDICARE ==
[~2020-08-09] VITALS: Ht 175.3 cm; Wt 89.4 kg
[2020-08-09] VITALS (7 sets, daily range): BP systolic 99–192; BP diastolic 71–102
[~2020-08-09 09:42] MED LIST changes: +ASPIRIN81 MG PO; +D3 HIGH POT5000 UNIT; +HYDROCODONE BIT1 TA7 PO; +IS-ZC 50 50 MG1 TAB; +ONDANSETRON4 MG PO; +TYLENOL PM PO
--- NOTE | 2020-08-09 10:03 | NUR ---
PT ARRIVED TO ICU BED 3. INTRODUCED SELF TO PT AND DICUSSE POC. PT IS A/O X3. AND APPEAR VERY ANXIOUS. ASSESSMENT AND VITALS COMPLETED. BP 123/95, HR 70, O2 100% ON ROOM AIR. RESPIRATIONS ARE SHALLOW. HEART RHYTHM IS NORMAL. BOWEL SOUNDS ARE HYPOACTIVE IN ALL QUADRANTS, LAST REPORTED BM 08/09/20. RADIAL PULSES STRONG. PEDAL PULSES WEAK.#20G IN RAC STARTED, D5NS AT 100 STARTED. SITE APPEARS HEALTHY AND PATENT. PT COMPLAINS OF 10/10 ABD PAIN. LORTAB TO BE ADMINISTERED.PT REPORTS ABD PAIN FOR THE PAST 2 MONTHS. PT STATES " I THINK IT BECAUSE OF MY CHEMO." PT ABLE TO ANSWER ALL OF DIRECTOR NON PROFIT QUESTIONS DUE TO PAIN. PT DENIES OF ANY ALLERGIES, ALLERGY BAND APPLIED.PT ORIENETED TO ROOM AND CALL LIGHT SYSTEM.ALL SAFTEY PRECAUTIONS ARE IN PLACE. WILL CONTINUE TO MONITOR
[2020-08-09] MEDS ORDERED: BUSPIRONE5 MG PO (10:42)
--- NOTE | 2020-08-09 10:43 | NUR ---
RT AT BEDSIDE COMPLETING EKG.
[2020-08-09] MEDS ORDERED: CLOPIDOGREL75 MG PO (10:44)
[2020-08-09 10:58] LABS: HEMOGLOBIN 12.8 g/dl (14.0-18.0); IMMATURE GRANULOCYTES 1.3 % (0.0-5.0); MEAN CELL VOLUME 96.9 fL CALC (80.0-100.0); NEUT# 4.19 thou/uL (1.82-7.42); RED BLOOD COUNT 4.13 mill/uL (4.70-6.10); RED CELL DISTRI WIDTH 14.3 % (11.5-15.5)
[2020-08-09 11:14] LABS: ALBUMIN 3.7 g/dL (3.2-5.0); ALKALINE PHOSPHATASE 123 u/l (38-126); ANION GAP 13 (6-22 (CALC)); BILIRUBIN, TOTAL 1.1 mg/dL (0.0-1.4); BUN 17 mg/dL (8-23); BUN/CREATININE RATIO 17 (12-20 (CALC)); CARBON DIOXIDE 23 mmol/l (22-30); CHLORIDE 103 mmol/l (95-108); GFR > 60 ML/MIN (>=60 (CALC)); GFR FOR AFR.AMER. > 60 ML/MIN (>=60 (CALC)); POTASSIUM 4.8 mmol/l (3.5-5.1); SGOT/AST 31 u/l (19-48); SODIUM 134 mmol/l (137-146); TOTAL PROTEIN 7.2 g/dL (6.3-8.2)
--- NOTE | 2020-08-09 11:30 | NUR ---
AIRCRAFT MACHINIST HELPER INFORMED BY PT HIS LAST CHEMO TREATMENT WAS 08/03/20. PT ABLE TO ASSIST WRITTER WITH MED REC COMPLETING. PT APPEARS MUCH MORE CALM. ALL SAFETY PRECAUTIONS ARE IN PLACE. WILL CONTINUE TO MONITOR.
--- NOTE | 2020-08-09 11:42 | NUR ---
STOOL SAMPLE COLLECTED
--- NOTE | 2020-08-09 12:15 | NUR ---
URINE SAMPLE COLLECTED
--- NOTE | 2020-08-09 12:18 | NUR ---
PT ON PHONE WITH YELLING " IM COLD AND IF YOU DONT COME GET ME IN LEAVING.". WARM BLANKETS PROVIDED AND ROOM TEMP ADJUSTED. CALLED STATING THAT HES BEEN LIKE THIS FOR THE PAST COUPLE DAYS AND HAVE NOT BEEN ABLE TO CONTROL HIM. MD TO BE NOTFIED OF PT STATUS.
[2020-08-09 12:25] LABS: C. DIFFICILE TOXIN A&B NEGATIVE (NEGATIVE)
[2020-08-09 12:32] LABS: URINE BILIRUBIN - DIPSTICK NEGATIVE (NEGATIVE); URINE BLOOD DIPSTICK NEGATIVE (NEGATIVE); URINE GLUCOSE - DIPSTICK NEGATIVE (NEGATIVE); URINE KETONE TRACE mg/dL (NEGATIVE); URINE LEUK ESTERASE NEGATIVE (Negative); URINE NITRITE - DIPSTICK NEGATIVE (Negative); URINE PH 8.5 (4.5-8.0); URINE PROTEIN - DIPSTICK 100 mg/dL (NEG-TRACE); URINE SPECIFIC GRAVITY 1.015; URINE UROBILINOGEN - DIPSTICK 0.2 E.U./dL (0.2)
[2020-08-09 12:35] LABS: URINE CLARITY SL CLOUDY; URINE COLOR DK. YELLOW
[2020-08-09 12:36] LABS: URINE EPITHELIAL CELLS FEW EPI/hpf (0-FEW); URINE MUCUS MANY hpf (NONE-FEW)
--- NOTE | 2020-08-09 12:39 | NUR ---
COVID SWAB COMPLETED AND SENT TO LAB
--- NOTE | 2020-08-09 13:23 | NUR ---
ST screen completed. Patient may benefit from a swallow evaluation given history of metastatic lung CA and left lower lobe PNA.
--- NOTE | 2020-08-09 13:27 | NUR ---
REASSESSMENT AND BP AND PAIN. BP 154/78, HR 90. PT COMPLAINS OF 4/10. DILAUDID ADMINISTERED. PT TOLERATED WELL. RESPIRATIONS ARE EVEN AND UNLABORED ON ROOM AIR. PT A/O AND CALM. ALL SAFETY PRECAUTIONS ARE IN PLACE. WILL CONTINUE TO MONITOR
--- NOTE | 2020-08-09 13:57 | NUR ---
REASSESSMENT OF PAIN RESULTING IN 07/31. PT STATES " I FEEL VERY LITTLE NOW. I HELP ALOT." RESPIRATIONS REMAINS EVEN AND UNLABORED ON ROOM AIR. NO SIGNS OF ANY DISTRESS. ALL SAFETY PRECAUTIONS ARE IN PLACE WITH CALL LIGHT IN REACH. WILL CONTINUE TO MONITOR
--- NOTE | 2020-08-09 14:53 | NUR ---
REPORT RECEIVED FROM HARSHA POLANCO
--- NOTE | 2020-08-09 15:00 | NUR ---
REPORT CALLED TO HARSHA SOMMERS.
--- NOTE | 2020-08-09 15:09 | NUR ---
PT ARRIVED TO MED/SURG ROOM 278 IN STABLE CONDITION VIA WHEELCHAIR ACCOMPANIED BY JOSHUA CASTORENA;PT AMBULATED TO BEDSIDE WITH A STEADY GAIT;VS AND WT OBTAINED;PT A&O X3, ORIENTED TO ROOM AND CALL LIGHT SYSTEM;PT DENIES ANY CURRENT PAIN OR DISCOMFORTS,PAIN SCALE AND REPORTING EDUCATED;ASSESSMENT COMPLETED;RESPIRATIONS EVEN AND UNLABORED ON RA,CLEAR LUNG SOUNDS;ABDOMEN DISTENDED/SOFT ON PALPATION AND ACTIVE IN ALL 4 QUADRANTS;STRONG PEDAL PULSES;SKIN INTACT;#20G TO RAC INFUSING D5 NS @ 100ML/HR,SITE APPEARS HEALTHY;FRESH WATER PROVIDED;PT DENIES ANY ADDITIONAL NEEDS AND IS ENCOURAGED TO CALL FOR ASSISTANCE IF NEEDED;FALL PRECAUTIONS IN PLACE WITH BED IN THE LOWEST POSITION AND CALL LIGHT IN REACH;WILL CONTINUE TO MONITOR
--- NOTE | 2020-08-09 16:54 | NUR ---
PT APPEARS TO BE SLEEPING IN SEMI FOWLERS POSITION;RESPIRATIONS EVEN AND UNLABORED ON RA;NO S/S OF DISTRESS NOTED;IV FLUIDS INFUSING WITH EASE;CALL LIGHT IN REACH;WILL CONTINUE TO MONITOR
--- NOTE | 2020-08-09 19:48 | NUR ---
PHYSICAL ASSESMENT COMPLETE. PT CURRENTLY DENIES PAIN OR DISCOMFORT. SCHEDULED MEDICATIONS AND PRN MEDICATION ADMINISTERED, SEE E-MAR. PT DENIES ANY NEEDS AT THIS TIME. PLAN OF CARE REVIEWED, PT DENIES QUESTIONS, VERBALIZES UNDERSTANDING. ITEMS WITHIN REACH, BED LOCKED IN LOW POSITION W/ BEDRAILS UP X2. CALL MARTINEZ WITHIN REACH, AGREES TO CALL PRN.
--- NOTE | 2020-08-09 21:31 | NUR ---
PT C/O OF UNBEARABLE LEG PAIN 04/30. PT PROVIDED HIS PRN PAIN MEDICATION. WILL CONTINUE TO MONITOR FPR SIGNS OF RELIEF.
--- NOTE | 2020-08-10 00:04 | NUR ---
PT LAYING IN BED WITH EYES CLOSED, APPEARS TO BE SLEEPING, APPEARS COMFORTABLE AND IN NO DISTRESS. RESPIRATIONS REGULAR AND UNLABORED. ITEMS REMAIN WITHIN REACH, CALL MARTINEZ REMAINS WITHIN REACH. BED REMAINS LOCKED AND IN LOW POSITION WITH BEDRAILS UP X2. WILL CONTINUE TO MONITOR.
[2020-08-10 03:45] VITALS: BP 117/65
[2020-08-10 06:07] LABS: IMMATURE GRANULOCYTES 0.8 % (0.0-5.0); MEAN CORPUSCULAR HGB 31.9 pG CALC (26.0-32.0); MEAN CORPUSCULAR HGB CONC 31.9 g/dL CAL (32.0-36.0); NEUT# 2.33 thou/uL (1.82-7.42); RED BLOOD COUNT 3.17 mill/uL (4.70-6.10); RED CELL DISTRI WIDTH 14.6 % (11.5-15.5)
[2020-08-10 06:13] LABS: HEMATOCRIT 31.7 % (39.0-50.0); HEMOGLOBIN 10.1 g/dl (14.0-18.0)
[2020-08-10 06:48] LABS: ALKALINE PHOSPHATASE 84 u/l (38-126); ANION GAP 9 (6-22 (CALC)); BUN 16 mg/dL (8-23); BUN/CREATININE RATIO 16 (12-20 (CALC)); CARBON DIOXIDE 21 mmol/l (22-30); CHLORIDE 107 mmol/l (95-108); GFR > 60 ML/MIN (>=60 (CALC)); GFR FOR AFR.AMER. > 60 ML/MIN (>=60 (CALC)); POTASSIUM 4.6 mmol/l (3.5-5.1); SGOT/AST 21 u/l (19-48); SODIUM 132 mmol/l (137-146)
[2020-08-10 07:00] LABS: ALBUMIN 2.5 g/dL (3.2-5.0); BILIRUBIN, TOTAL 0.5 mg/dL (0.0-1.4); TOTAL PROTEIN 5.1 g/dL (6.3-8.2)
--- NOTE | 2020-08-10 07:06 | NUR ---
PT note Patient is screened for rehab intervention and no needs are identified at this time
[2020-08-10 08:03] VITALS: BP 109/49
--- NOTE | 2020-08-10 08:03 | NUR ---
PT LAYING IN BED. A&O X3. NO DISTRESS NOTED. PT REPORTS LOOSE BM "DIARRHEA LIKE" THIS MORNING, UNOBSERVABLE AT THIS TIME BY THIS HAZARDOUS MATERIALS TANKER DRIVER. PT DENIES ANY PAIN. ASSESSMENT COMPLETED. DISCUSSED POC. CALL LIGHT LEFT WITHIN REACH.
--- NOTE | 2020-08-10 09:05 | NUR ---
DR MCLAUGHLIN AND Yesy BLANDON APRN AT BEDSIDE
--- NOTE | 2020-08-10 09:11 | NUR ---
UPON ENTERING ROOM, PT IN TEARS STATING "MY STOMACH HURTS SO BAD". DILAUDID 0.5 MG IV GIVEN. WILL REASSESS.
[2020-08-10 09:33] LABS: AMYLASE 42 u/l (30-110); LIPASE 28 u/l (23-300)
--- NOTE | 2020-08-10 09:59 | NUR ---
PT SLEEPING AT THIS TIME. NO DISTRESS NOTED. CONTINUE TO MONITOR.
--- NOTE | 2020-08-10 12:32 | NUR ---
PT STATES PAIN HAS GOTTEN BETTER. UPDATED PT ON SCHEDULED LORTAB ORDER. CALL LIGHT LEFT WITHIN REACH.
[2020-08-10 15:05] VITALS: BP 97/55
--- NOTE | 2020-08-10 18:09 | NUR ---
PT SITTING ON THE SIDE OF THE BED. STATES PAIN HAS IMPROVED. 5/10 AT THIS TIME. WISHES TO HAVE SHOWER. PT ASSISTED TO SHOWER BY RODRICK LEWIS.
[2020-08-10 18:40] VITALS: BP 93/49
--- NOTE | 2020-08-10 19:41 | NUR ---
RECEIVED CHANGE OF SHIFT REPORT FROM [facility], CARE OF PATIENT ASSUMED.
--- NOTE | 2020-08-10 20:00 | NUR ---
PT A&O X 3 LAYING IN BED, ASLEEP. ASSESSMENT COMPLETE, POC DISCUSSED. NO S/SX OF DISCOMFORT OR DISTRESS EXPRESSED OR OBSERVED AT THIS TIME. PT DENIES ANY NEEDS OR CONCERNS AT THIS TIME. ALL SAFETY MEASURE ARE IN PLACE, BED IN LOWEST POSITION WITH WHEELS LOCKED AND UPPER SIDE RAILS UP X 2 AND CALL LIGHT WITHIN REACH. PT INSTRUCTED TO CALL FOR ANY NEEDS/ ASSISTANCE. WILL CONTINUE TO MONITOR.
--- NOTE | 2020-08-11 | NUR ---
PT LAYING IN BED SLEEPING, NO S/SX OF DISTRESS OR DISCOMFORT OBSERVED AT THIS TIME. PT SCHEDULE TO RECEIVED PAIN MED, BUT DECLINED AT THIS TIME SCHEDULE PAIN MED AT THIS TIME AND DENIES PAIN AT THE MOMENT, WILL CONTINUE TO MONITOR.
--- NOTE | 2020-08-11 04:23 | NUR ---
PT IS LAYING IN BED SLEEPING, NO S/SX OF DISTRESS OR DISCOMFORT NOTED AT THIS TIME, CALL LIGHT WITHIN REACH, WILL CONTINUE TO MONITOR.
[2020-08-11 04:32] VITALS: BP 123/70
[2020-08-11 06:22] LABS: HEMATOCRIT 28.8 % (39.0-50.0); HEMOGLOBIN 8.8 g/dl (14.0-18.0); MEAN CELL VOLUME 103.6 fL CALC (80.0-100.0); MEAN CORPUSCULAR HGB 31.7 pG CALC (26.0-32.0); MEAN CORPUSCULAR HGB CONC 30.6 g/dL CAL (32.0-36.0); RED BLOOD COUNT 2.78 mill/uL (4.70-6.10); RED CELL DISTRI WIDTH 14.7 % (11.5-15.5)
[2020-08-11 06:54] LABS: ANION GAP 7 (6-22 (CALC)); BUN 15 mg/dL (8-23); BUN/CREATININE RATIO 14 (12-20 (CALC)); CARBON DIOXIDE 20 mmol/l (22-30); CHLORIDE 112 mmol/l (95-108); CREATININE 1.1 mg/dL (0.7-1.3); GFR > 60 ML/MIN (>=60 (CALC)); GFR FOR AFR.AMER. > 60 ML/MIN (>=60 (CALC)); MAGNESIUM 2.1 mg/dL (1.6-2.3); POTASSIUM 4.8 mmol/l (3.5-5.1); SODIUM 134 mmol/l (137-146)
[2020-08-11 07:19] VITALS: BP 150/74
--- NOTE | 2020-08-11 07:19 | NUR ---
PT SLEEPING IN BED, AWAKENED TO COMPLETE ASSESSMENT. A&OX3. NO DISTRESS NOTED. PT C/O OF "A LITTLE BIT" OF PAIN, UNABLE TO RATE IT ON A SCALE OF 0-10, STATES IT IS "BARELY STARTING". PT INSTRUCTED TO CALL FOR ASSISTANCE WHEN WANTING TO GET OUT OF BED TO PREVENT A FALL. PT VERABLIZED UNDERSTANDING. ASSESSMENT COMPLETED. DISCUSSED POC. CALL LIGHT LEFT WITHIN REACH.
--- NOTE | 2020-08-11 08:41 | NUR ---
DR MCLAUGHLIN AND Yesy BLANDON APRN AT BEDSIDE
--- NOTE | 2020-08-11 12:00 | NUR ---
PT SITTING IN RECLINER. NO DISTRESS NOTED. CALL LIGHT LEFT WITHIN REACH.
--- NOTE | 2020-08-11 12:00 | NUR ---
PT SLEEPING IN BED. NO DISTRESS NOTED. CALL LIGHT LEFT WITHIN REACH.
[2020-08-11 15:19] VITALS: BP 139/70
--- NOTE | 2020-08-11 17:29 | NUR ---
SUPPOSITORY AND MIRALAX GIVEN BY Sandra HOLCOMB RN, PT UNABLE TO HAVE BM TODAY.
[2020-08-11 19:20] VITALS: BP 144/67
--- NOTE | 2020-08-11 19:23 | NUR ---
REPORT FROM SUNSHINE MENEZES. ASSUMED PT CARE.
--- NOTE | 2020-08-11 20:37 | NUR ---
PT NOTED RESTING IN BED. ALERT AND ORIENTED. NO APPARENT DISTRESS NOTED. RESPIRATIONS EVEN AND UNLABORED. ON RA. IV SITES APPEAR HEALTHY. IVF INFUSING WITHOUT DIFFICULTY. PT C/O PAIN TO LOWER ABD, MEDICATED AT THIS TIME. ACTIVE BOWEL SOUNDS NOTED IN ALL FOUR QUADRANTS. ABD SOFT AND DISTENDED. FRESH ICE WATER PROVIDED. DISCUSSED POC AND SAFETY PRECAUTIONS. PT VERBALIZED UNDERSTANDING. NO OTHER CURRENT WANTS OR NEEDS NOTED. CALL LIGHT WITHIN REACH. WILL CONTINUE TO MONITOR.
--- NOTE | 2020-08-12 00:18 | NUR ---
PT RESTING IN BED WITH EYES CLOSED. NO APPARENT DISTRESS NOTED. RESPIRATIONS EVEN AND UNLABORED. IV FLUIDS INFUSING WITHOUT DIFFICULTY. CALL LIGHT WITHIN REACH. WILL CONTINUE TO MONITOR.
[2020-08-12 03:45] VITALS: BP 150/80
[2020-08-12 08:19] VITALS: BP 155/76
--- NOTE | 2020-08-12 08:19 | NUR ---
RECIEVED REPORT FROM CLIF CARLSON. PT RESTING IN SEMI FOWLERS POSITION. INTRODUCED SELF TO PT AND DICUSSED POC. PT IS A/O X3. ASSESSMENT AND VITALS COMPLETED. RESPIRATIONS ARE EVEN AND UNLABORED ON ROOM AIR. HEART RHYTHM NORMAL. BOWEL SOUNDS ARE ACTIVE IN ALL QUADRANTS. RADIAL PULSE STRONG. PEDAL PULSES WEAK. #20G IN LAC INFUSING WITH IVF PER ORDER. #22G IN LEFT HAND FLUSHED, SITE APPEARS HEALTHY AND PATENT. SKIN INTACT IWTH NO BREAKDOWN. PT DENIES OF ANY PAINS.ALL SAFETY PECAUTIONS ARE IN PLACE WITH CALL LIGHT IN REACH. WILL CONTINUE TO MONITOR.
[2020-08-12 08:32] LABS: HEMOGLOBIN 9.8 g/dl (14.0-18.0); IMMATURE GRANULOCYTES 0.6 % (0.0-5.0); MEAN CELL VOLUME 101.9 fL CALC (80.0-100.0); MEAN CORPUSCULAR HGB 31.2 pG CALC (26.0-32.0); MEAN CORPUSCULAR HGB CONC 30.6 g/dL CAL (32.0-36.0); NEUT# 1.73 thou/uL (1.82-7.42); RED BLOOD COUNT 3.14 mill/uL (4.70-6.10); RED CELL DISTRI WIDTH 14.6 % (11.5-15.5)
[2020-08-12 08:38] LABS: ALBUMIN 2.9 g/dL (3.2-5.0); ALKALINE PHOSPHATASE 99 u/l (38-126); ANION GAP 11 (6-22 (CALC)); BILIRUBIN, TOTAL 0.3 mg/dL (0.0-1.4); BUN 13 mg/dL (8-23); BUN/CREATININE RATIO 12 (12-20 (CALC)); CARBON DIOXIDE 21 mmol/l (22-30); CHLORIDE 108 mmol/l (95-108); CREATININE 1.1 mg/dL (0.7-1.3); GFR > 60 ML/MIN (>=60 (CALC)); GFR FOR AFR.AMER. > 60 ML/MIN (>=60 (CALC)); POTASSIUM 4.9 mmol/l (3.5-5.1); SGOT/AST 25 u/l (19-48); SODIUM 135 mmol/l (137-146); TOTAL PROTEIN 5.8 g/dL (6.3-8.2)
--- NOTE | 2020-08-12 09:15 | NUR ---
DR ELIAS AT BEDSIDE
[2020-08-12 12:00] VITALS: BP 112/71
--- NOTE | 2020-08-12 12:54 | NUR ---
PT SLEEPING IN SEMI FOWLERS POSITION. REPSIRTIONS ARE EVEN AND UNLABORED ON ROOM AIR. IVF INFUSING PER ORDER, SITE APPEARS HEALTHY AND PATENT. NO SIGNS OF ANY PAINS OR DISCOMFORTS. ALL SAFETY PRECAUTIONS ARE IN PLACE WITH CALL LIGHT IN REACH. WILL CONTINUE TO MONITOR
[2020-08-12 15:00] VITALS: BP 140/64
--- NOTE | 2020-08-12 15:15 | NUR ---
DR ELIAS AT BEDSIDE TO INFORM PT ON SCHEDUED EDG AND COLONOSCOPY TOMORROW. PT VERBALIZED UNDERSTANDING . NULYTLEY ADMINISTERED.
--- NOTE | 2020-08-12 15:33 | NUR ---
PT RESTING IN SEMI FOWLERS POSITION. RESPIRATIONS ARE EVEN AND UNLABORED ON ROOM AIR. PT COMPLAINS OF CRAMPING IN LEFT SIDE OF ABD. BENTLY ADMINISTERED. IVF INFUSING PER ORDER, SITE APPEARS HEALTHY AND PATENT. NULYTLEY AT BEDSIDE, ENCOURAGED PT TO DRINK. PT DENIES OF ANY OTHER NEEDS. ALL SAFETY PRECAUTIONS ARE IN PLACE. WILL CONTINUE TO MONITOR.
--- NOTE | 2020-08-12 17:55 | NUR ---
PT FOUND ON FLOOR. PT STATES " I WAS TRYUONG TO GO TO THE [facility] AND TRIPPED." PT DENIES HITTING HEAD. PT DENIES OF ANY PAINS. SKIN TEAR NOTED TO [facility], PHOTOS OBTAINED. BAND AID APPLIED. PT CONTINUES TO REUFSES PAINS. PT ASSISTED BACK INTO BED. BIOASSAYIST INSTRUCTED PT TO CALL FOR ASSISTANCE. PT VERBALIZED UNDERSTANDING.WILL CONTINUE TO MONITOR
--- NOTE | 2020-08-12 18:40 | NUR ---
DR GRETCHEN NIEVESFIED OF FALL. XRAY OF HAND AND WRIST ORDERED.
--- NOTE | 2020-08-12 19:23 | NUR ---
REPORT FROM MARIANNA MCLEOD. ASSUMED PT CARE.
--- NOTE | 2020-08-12 20:22 | NUR ---
ASSISTED PT TO BATHROOM. PT AMBULATED WITH STEADY GAIT. NO BM NOTED, LOTS OF FLATUENCE. PT BACK INTO BED. ABD DISTENDED AND HARD. HYPERACTIVE BOWEL SOUNDS NOTED. PT DENIES ANY PAIN OR DISCOMFORT. DISCUSSED POC AND SAFETY PRECAUTIONS. PT VERBALIZED UNDERSTANDING. CALL LIGHT WITHIN REACH. WILL CONTINUE TO MONITOR.
[2020-08-12 20:25] VITALS: BP 174/79
[2020-08-13] VITALS (14 sets, daily range): BP systolic 137–172; BP diastolic 60–82
--- NOTE | 2020-08-13 00:24 | NUR ---
PT RESTING IN BED WITH EYES CLOSED. NO APPARENT DISTRESS NOTED. RESPIRATIONS EVEN AND UNLABORED. IV FLUIDS INFUSING WITHOUT DIFFICULTY. NPO AT THIS TIME. CALL LIGHT WITHIN REACH. WILL CONTINUE TO MONITOR.
--- NOTE | 2020-08-13 03:49 | NUR ---
ASSISTED PT TO BATHROOM. PT AMBULATED WITH STEADY GAIT. CLEAR WATERY STOOL NOTED. HYPERACTIVE BOWEL SOUNDS NOTED. PT DENIES ANY PAIN OR DISCOMFORT. CALL LIGHT WITHIN REACH. WILL CONTINUE TO MONITOR.
--- NOTE | 2020-08-13 07:41 | NUR ---
RECIEVED REPORT FROM HARSHA CARLSON. PT RESTING IN SEMI FOWLERS POSITION UPON ENTERING ROOM. INTRODUCED SELF TO PT AND DISCUSSED POC. PT IS A/O X3. ASSESSMENT AND VITALS COMPLETED. RESPIRATIONS ARE EVEN AND UNLABORED ON ROOM AIR. HEART RHYTHM NORMAL. BOWEL SOUNDS ARE ACTIVE IN ALL QUADRANTS, LAST REPORTED BM 08/13/20. RADIAL PULSES STRONG. PEDAL PULSES WEAK. #20G IN LAC INFUSING WITH IVF PER ORDER, SITE APPEARS HEALTHY AND PATENT. SKIN IS WARM AND INTACT WITH NO BREAKDOWN NOTED. SCATTERED BRUISING NOTED. SKIN TEAR TO LFA NOTED. PT DENIES OF ANY PAINS OR DISCOMFORTS. PT MAGALLON OF SCHEDULED EFG AND COLONOSCOPY AT 0800. PT DENIES OF ANY ADDITIONAL NEEDS AT THIS TIME. ALL SAFETY PRECAUTIONS ARE IN PLACE WITH CALL LIGHT IN REACH AND BED ALARM ACTIVATED. WILL CONTINUE TO MONITOR.
--- NOTE | 2020-08-13 08:17 | NUR ---
PT TRANSPORTED TO OR FOR SCHEULED EDG AND COLONSCOPY ACCOMAINED BY OR STAFF VIA BED IN STABLE CONDITION.
--- NOTE | 2020-08-13 09:55 | NUR ---
PT TRANSFERED BACK TO MED SURG ROOM 278 VIA BED ACCOMPAINED BY OR STAFF.BESIDE REPORT RECIEVED FROM OR STAFF. PT IS A/O X3 BUT SLEEPY. VITALS OBATINED, STABLE. RESPIRATIONS ARE EVEN AND UNLABORED ON ROOM AIR. SCDS PLACED. PT DENIES OF ANY PAINS OR DISCOMFORTS AT THIS TIME. ALL SAFETY PRECAUTIONS ARE IN PLACE WITH CALL LIGHT IN REACH AND BED ALARM ACTIVATED. WILL CONTINUE TO MONITOR.
--- NOTE | 2020-08-13 11:31 | NUR ---
PORTONIX DRIP STARTED. LEVEMIR 50 UNITS HELP DUE TO ACCU CHECK RESULTING IN 91 AND FULL LIQUID DIET.
--- NOTE | 2020-08-13 12:10 | NUR ---
DR VÁZQUEZ AT BEDSIDE.
--- NOTE | 2020-08-13 12:37 | NUR ---
INFORMATION SYSTEMS SECURITY OFFICER ASSISTED PT BACK INTO BED FROM [facility]. RESPIRATIONS ARE EVEN AND UNLABORED WITH NO SIGNS OF DISTRESS NOTED. PROTONIX DRIP INFUSING PER ORDER, SITE APPEARS HEALTHY AND PATENT. SCDS IN PLACE. PT DENIES OF ANY PAINS OR DICOMFORTS. ALL SAFETY PRECAUTIONS ARE IN PLACE WIHT CALL LIGHT IN REACH AND BED ALARM ACTIVATED. WILL CONTINUE TO MONITOR.
--- NOTE | 2020-08-13 13:01 | NUR ---
UPDATE ON PT STATUS, PASSCODE PROVIDED.
--- NOTE | 2020-08-13 15:50 | NUR ---
PT SLEEPING IN SEMI FOLWERS POSITION. RESPIRATIONS ARE EVEN AND UNLABORED ON ROOM AIR. IVF INFUSING WITH EASE, SITE APPEARS HEALTHY AND PATENT. NO SIGNS OF ANY PAINS OR DISCOMFORTS. ALL SAFETY PRECAUTIONS ARE IN PLACE. WILL CONTINUE TO MONITOR
--- NOTE | 2020-08-13 19:01 | NUR ---
REPORT FROM MARIANNA MCLEOD. ASSUMED PT CARE.
--- NOTE | 2020-08-13 19:32 | NUR ---
CALLED FOR ELVATED BP. NO ANSWER. VOICE MAIL LEFT.
--- NOTE | 2020-08-13 20:45 | NUR ---
PT NOTED RESTING IN BED. ALERT AND ORIENTED. NO APPARENT DISTRESS NOTED. RESPIRATIONS EVEN AND UNLABORED. ON RA. IV SITES APPEAR HEALTHY. IVF AND PROTONIX GTT INFUSING WITHOUT DIFFICULTY. PT DENIES ANY PAIN OR DISCOMFORT. ACTIVE BOWEL SOUNDS NOTED IN ALL FOUR QUADRANTS. ABD SOFT. FRESH ICE WATER PROVIDED. DISCUSSED POC AND SAFETY PRECAUTIONS. PT VERBALIZED UNDERSTANDING. NO OTHER CURRENT WANTS OR NEEDS NOTED. CALL LIGHT WITHIN REACH. WILL CONTINUE TO MONITOR.
--- NOTE | 2020-08-13 23:56 | NUR ---
PT UP REQUESTING TO GO TO BATHROOM. CONFUSED AT THIS TIME PT STATES HIS COUSINS ARE PRESENT IN ROOM WITH HIM. PT REORIENTED TO TIME AND SITUATION. NOW ALERT AND ORIENTED. PT AMBULATED WITH ASSIST TO BATHROOM. PT VOIDED WITHOUT DIFFICULTY. ASSISTED BACK INTO BED. PT REMOVED DENTURES AND PLACE IN DENTURE CUP. PT STATES " I AM REALLY FEEL STUPID BUT I THINK THE SLEEPING PILL IS WHAT MADE ME CONFUSED". PT WAS GIVEN ATIVAN REQUESTED TO HELP SLEEP. VSS. NO APPARENT DISTRESS NOTED. PT REORIENTED WITH NO PROBLEM. CALL LIGHT WITHIN REACH. WILL CONTINUE TO MONITOR.
[2020-08-14] VITALS (7 sets, daily range): BP systolic 129–171; BP diastolic 68–81
--- NOTE | 2020-08-14 02:57 | NUR ---
PT SET OFF BED ALARM ATTEMPTING TO GET OOB TO GO TO BATHROOM. ASSISTED PT TO BATHROOM PT AMBULATED WITH STEADY GAIT. VOIDED WITHOUT DIFFICULTY. NO APPARENT DISTRESS NOTED. RESPIRATIONS EVEN AND UNLABORED. PT DENIES ANY PAIN OR DISCOMFORT. BACK INTO BED. IV FLUIDS AND PROTONIX GTT INFUSING, SITE APPEARS HEALTHY. PT ALERT AND ORIENTED X3 AT THIS TIME. CALL LIGHT WITHIN REACH. WILL CONTINUE TO MONITOR.
[2020-08-14 05:21] LABS: HEMATOCRIT 30.6 % (39.0-50.0); HEMOGLOBIN 9.5 g/dl (14.0-18.0); IMMATURE GRANULOCYTES 0.4 % (0.0-5.0); MEAN CELL VOLUME 101.3 fL CALC (80.0-100.0); MEAN CORPUSCULAR HGB 31.5 pG CALC (26.0-32.0); RED BLOOD COUNT 3.02 mill/uL (4.70-6.10); RED CELL DISTRI WIDTH 14.8 % (11.5-15.5)
[2020-08-14 05:44] LABS: ANION GAP 9 (6-22 (CALC)); BUN 9 mg/dL (8-23); BUN/CREATININE RATIO 9 (12-20 (CALC)); CARBON DIOXIDE 23 mmol/l (22-30); CHLORIDE 109 mmol/l (95-108); CREATININE 0.9 mg/dL (0.7-1.3); GFR > 60 ML/MIN (>=60 (CALC)); GFR FOR AFR.AMER. > 60 ML/MIN (>=60 (CALC)); POTASSIUM 4.4 mmol/l (3.5-5.1); SODIUM 136 mmol/l (137-146)
--- NOTE | 2020-08-14 07:30 | NUR ---
RECIEVED REPORT FROM HARSHA CARLSON. CARE RESUMED
--- NOTE | 2020-08-14 08:30 | NUR ---
PT RESTING IN SEMI FOWLERS POSITION. INTRODUCED SELF TO PT AND DICUSSED POC. PT IS A/O X3. ASSESSMENT AND VITALS COMPLETED. BP 133/68, HR77, O2 98. RESPIRATIONS ARE EVEN AND UNLABORED ON ROOM AIR. HEART RHYTHM IS NORMAL WITH TELE IN PLACE. BOWEL SOUNDS ARE ACTIVE IN ALL QUADRANTS, LAST REPORETD BM 08/14/20. RADIAL PULSES STRONG. PEDAL PULSES WEAK. #20G IN LAC INFUSING WITH IVF AND PROTONIX DRIP Y-SITED, SITE APPEARS HEALTHY AND PATENT.SKIN IS WARM AND DRY. SCATTERED BRUISING NOTED THROUGH OUT BODY. LFA SKIN TEAR NOTED, NEW BAND AID APPLIED. PT COMPLAINS OF PULLING BY NAVEL WHEN TRYING TO SIT, NOTFIED, DENIES ANY CURRENT PAINS OR DISCOMFORTS.ALL SAFETY PRECAUTIONS ARE IN PLACE AND BED ALARM ACTIVATED. WILL CONTINUE TO MONITOR
--- NOTE | 2020-08-14 10:40 | NUR ---
DR GODINEZ AT BEDSIDE
--- NOTE | 2020-08-14 12:46 | NUR ---
PT SITTING UP ON SIDE OF BED EATING LUNCH. RESPIRATIONS ARE EVEN AND UNLABORED ON ROOM AIR. IVF AND PROTONIX DRIP INFUSING WITH EASE, SITE APPEARS HEALTHY AND PATENT. PT DENIES OF ANY PAINS OR NEEDS AT THIS TIME. ALL SAFETY PRECAUTIONS ARE IN PLACE WITH CALL LIGHT IN REACH AND BED ALARM ACTIVATED. WILL CONTINUE TO MONITOR
--- NOTE | 2020-08-14 15:51 | NUR ---
PT SLEEPING IN LOW FOWLERS POSITION. REPSIRATIONS ARE EVEN AND UNLABORED ON ROOM AIR. IVF INFUSING PER ORDER, SITE APPEARS HEALTHY AND PATENT. NO SIGNS OF ANY PAINS OR DISCOMFORTS. ALL SAFETY PRECAUTIONS ARE IN PLACE WITH CALL LIGHT IN REACH. WILL CONTINUE TO MONITOR.
--- NOTE | 2020-08-14 19:02 | NUR ---
REPORT FROM MARIANNA MCLEOD. ASSUMED PT CARE.
--- NOTE | 2020-08-14 20:03 | NUR ---
PT NOTED RESTING IN BED. ALERT AND ORIENTED. NO APPARENT DISTRESS NOTED. RESPIRATIONS EVEN AND UNLABORED. ON RA. IV SITES APPEAR HEALTHY. IVF INFUSING WITHOUT DIFFICULTY. PT DENIES ANY PAIN OR DISCOMFORT. ACTIVE BOWEL SOUNDS NOTED IN ALL FOUR QUADRANTS. ABD SOFT. FRESH ICE WATER PROVIDED. DISCUSSED POC AND SAFETY PRECAUTIONS. PT VERBALIZED UNDERSTANDING. NO OTHER CURRENT WANTS OR NEEDS NOTED. CALL LIGHT WITHIN REACH. WILL CONTINUE TO MONITOR.
[2020-08-15 04:00] VITALS: BP 167/83
--- NOTE | 2020-08-15 04:46 | NUR ---
PT RESTING IN BED WITH EYES CLOSED. NO APPARENT DISTRESS NOTED. RESPIRATIONS EVEN AND UNLABORED. O2 @ 4L/M VIA NC. CALL LIGHT WITHIN REACH. WILL CONTINUE TO MONITOR.
[2020-08-15 05:35] LABS: HEMATOCRIT 33.9 % (39.0-50.0); HEMOGLOBIN 10.6 g/dl (14.0-18.0); IMMATURE GRANULOCYTES 0.7 % (0.0-5.0); MEAN CELL VOLUME 100.3 fL CALC (80.0-100.0); MEAN CORPUSCULAR HGB 31.4 pG CALC (26.0-32.0); MEAN CORPUSCULAR HGB CONC 31.3 g/dL CAL (32.0-36.0); NEUT# 1.05 thou/uL (1.82-7.42); RED BLOOD COUNT 3.38 mill/uL (4.70-6.10); RED CELL DISTRI WIDTH 15.2 % (11.5-15.5)
[2020-08-15 06:06] LABS: ANION GAP 9 (6-22 (CALC)); BUN 6 mg/dL (8-23); BUN/CREATININE RATIO 6 (12-20 (CALC)); CARBON DIOXIDE 26 mmol/l (22-30); CHLORIDE 107 mmol/l (95-108); CREATININE 0.9 mg/dL (0.7-1.3); GFR > 60 ML/MIN (>=60 (CALC)); GFR FOR AFR.AMER. > 60 ML/MIN (>=60 (CALC)); POTASSIUM 4.3 mmol/l (3.5-5.1); SODIUM 138 mmol/l (137-146)
[2020-08-15 06:18] VITALS: BP 155/63
--- NOTE | 2020-08-15 07:30 | NUR ---
PATIENT RESTING IN BED AT THIS TIME DENIES ANY PAIN OR NEEDS CALL LIGHT WITHIN REACH SIDERAILS UP X2 BRASS FINISHER DONE SEE INTERVENTIONS.
[2020-08-15 07:48] VITALS: BP 150/63
[2020-08-15 09:28] VITALS: BP 150/63
--- NOTE | 2020-08-15 11:48 | NUR ---
PATIENT RESTING IN BED AT THIS TIME DENIES ANY PAIN OR NEEDS. CALL LIGHT WITHIN REACH SIDERAILS UP X2.
[2020-08-15] MEDS ORDERED: MIRALAX17 GM/SCOO PO (12:01)
[2020-08-15] MEDS ORDERED: PROTONIX40 MG PO (12:02)
[2020-08-15] MEDS ORDERED: SENOKOT EXTRA17.2 MG PO (12:03)
--- NOTE | 2020-08-15 14:02 | NUR ---
PATIENT D/C AT THIS TIME PATIENT VERBALIZES UNDERSTANDING OF D/C INSTRUCTIONS AT THIS TIME.
--- NOTE | 2020-08-15 14:15 | NUR ---
Discharge instructions given. Patient verbalizes understanding of same. Discharged in stable condition via Wheelchair to Home with family. All belongings sent with pt.
== END 2020-08-15 14:15 | disposition home health service (06) | DRG 378 ==
LOC: ICU 09:42 → MS2 09:42
PROVIDERS: Internal Medicine; Nurse Practitioner; ADMIT Internal Medicine; ATTEND Internal Medicine
PROC: 0DJD8ZZ Inspection of Lower Intestinal Tract, Via Natural or Artificial Opening Endoscopic (ICD-10-PCS; principal; 2020-08-13)
PROC: 0DJ08ZZ Inspection of Upper Intestinal Tract, Via Natural or Artificial Opening Endoscopic (ICD-10-PCS; 2020-08-13)
DX: K26.4 Chronic or unspecified duodenal ulcer with hemorrhage (principal); C34.90 Malignant neoplasm of unspecified part of unspecified bronchus or lung; C79.9 Secondary malignant neoplasm of unspecified site; D62 Acute posthemorrhagic anemia; E11.22 Type 2 diabetes mellitus with diabetic chronic kidney disease; I12.9 Hypertensive chronic kidney disease with stage 1 through stage 4 chronic kidney disease, or unspecified chronic kidney disease; E11.40 Type 2 diabetes mellitus with diabetic neuropathy, unspecified; N18.30 Chronic kidney disease, stage 3 unspecified; E78.5 Hyperlipidemia, unspecified; K29.80 Duodenitis without bleeding; K42.9 Umbilical hernia without obstruction or gangrene; K57.30 Diverticulosis of large intestine without perforation or abscess without bleeding; K44.9 Diaphragmatic hernia without obstruction or gangrene; K59.00 Constipation, unspecified; Z79.4 Long term (current) use of insulin; Z95.820 Peripheral vascular angioplasty status with implants and grafts; Z87.891 Personal history of nicotine dependence; Z20.822 Contact with and (suspected) exposure to COVID-19
CPT/HCPCS: J1650; Q9967; S0164

== ENCOUNTER 2020-08-18 17:25 | Observation (INO) | payer MEDICARE ==
[~2020-08-18] VITALS: Ht 175.3 cm; Wt 86.8 kg
[~2020-08-18 17:25] MED LIST changes: +BUSPIRONE5 MG PO; +CLOPIDOGREL75 MG PO; +MIRALAX17 GM/SCOO PO; +PROTONIX40 MG PO; +SENOKOT EXTRA17.2 MG PO
--- NOTE | 2020-08-18 17:45 | NUR ---
PATIENT IN STABLE CONDITION AND PLACED BACK OUT TO WAITING ROOM TO AWAIT ROOM ASSIGNMENT.
--- NOTE | 2020-08-18 17:58 | NUR ---
PT WHEELED TO ER 14 BY EDP AT THIS TIME FOR TREATMENT.
--- NOTE | 2020-08-18 19:00 | NUR ---
REPORT GIVEN TO JEO MENEZES.
[2020-08-18] MEDS ORDERED: MIRALAX17 GM (19:17)
[2020-08-18 19:22] LABS: HEMATOCRIT 35.3 % (39.0-50.0); HEMOGLOBIN 10.9 g/dl (14.0-18.0); MEAN CORPUSCULAR HGB 31.5 pG CALC (26.0-32.0); MEAN CORPUSCULAR HGB CONC 30.9 g/dL CAL (32.0-36.0); NEUT# 0.69 thou/uL (1.82-7.42); RED BLOOD COUNT 3.46 mill/uL (4.70-6.10); RED CELL DISTRI WIDTH 15.8 % (11.5-15.5)
--- NOTE | 2020-08-18 19:24 | NUR ---
AO X3 GCS 15 SPEECH IS CLEAR NOMEMPRY LOSS APPARENT NO FOCAL DEFICITS. C/O GENET MID ABD POSS STOMACH ULCER NO BLACK TARRY BMS NO RED BMS WEAkenss with fall this am at home.
[2020-08-18 19:37] LABS: ALBUMIN 3.4 g/dL (3.2-5.0); ALKALINE PHOSPHATASE 120 u/l (38-126); ANION GAP 12 (6-22 (CALC)); BILIRUBIN, TOTAL 0.4 mg/dL (0.0-1.4); BUN 17 mg/dL (8-23); BUN/CREATININE RATIO 14 (12-20 (CALC)); CARBON DIOXIDE 23 mmol/l (22-30); CHLORIDE 105 mmol/l (95-108); CREATININE 1.2 mg/dL (0.7-1.3); GFR 58 ML/MIN (>=60 (CALC)); GFR FOR AFR.AMER. > 60 ML/MIN (>=60 (CALC)); LIPASE 64 u/l (23-300); POTASSIUM 4.6 mmol/l (3.5-5.1); SGOT/AST 37 u/l (19-48); SODIUM 136 mmol/l (137-146); TOTAL PROTEIN 6.6 g/dL (6.3-8.2)
[2020-08-18] MEDS ORDERED: PROTONIX40 M2 PO (19:39)
--- NOTE | 2020-08-18 20:36 | NUR ---
[facility] SKIN NO C.O DIZZINESS.GCS 15 VOVALIZES STRONGLY AND WITHOUT DIFF.
--- NOTE | 2020-08-18 22:56 | NUR ---
PT DENIES PAIN AOX3 W/PP/D SKIN
--- NOTE | 2020-08-18 23:30 | NUR ---
PHONE REPORT TO NURSE ALDO ON MS2
--- NOTE | 2020-08-18 23:34 | NUR ---
PT ARRIVED TO FLOOR VIA STRETCHER ACCOMPAINED BY ER STAFF. PT ALERT AND ORIENTED. NO APPARENT RESPIRATORY DISTRESS NOTED. PRINT SUPPORT SPECIALIST IN PLACE. IV SITE APPEARS HEALTHY. DISCUSSED POC AND SAFETY PRECAUTIONS. PT VERBALIZED UNDERSTANDING. ORIENTED TO ROOM AND CALL LIGHT SYSTEM. CALL LIGHT WITHIN REACH. WILL CONTINUE TO MONITOR.
--- NOTE | 2020-08-18 23:35 | NUR ---
PT TRANSPORTED VIA STRETCHER ON TELEIN STABLE CONDITION TO [facility] 261
[2020-08-18 23:40] VITALS: BP 157/57
[2020-08-19] VITALS (7 sets, daily range): BP systolic 123–162; BP diastolic 48–84
[2020-08-19 00:44] LABS: URINE BILIRUBIN - DIPSTICK NEGATIVE (NEGATIVE); URINE BLOOD DIPSTICK NEGATIVE (NEGATIVE); URINE COLOR YELLOW; URINE GLUCOSE - DIPSTICK NEGATIVE (NEGATIVE); URINE KETONE NEGATIVE (NEGATIVE); URINE LEUK ESTERASE NEGATIVE (NEGATIVE); URINE NITRITE - DIPSTICK NEGATIVE (Negative); URINE PH 6.5 (4.5-8.0); URINE PROTEIN - DIPSTICK NEGATIVE (NEG-TRACE); URINE SPECIFIC GRAVITY 1.015; URINE UROBILINOGEN - DIPSTICK 0.2 E.U./dL (0.2)
--- NOTE | 2020-08-19 03:58 | NUR ---
PT RESTING IN BED WITH EYES CLOSED. NO APPARENT DISTRESS NOTED. RESPIRATIONS EVEN AND UNLABORED. CALL LIGHT WITHIN REACH. WILL CONTINUE TO MONITOR.
[2020-08-19 05:25] LABS: HEMATOCRIT 32.7 % (39.0-50.0); HEMOGLOBIN 10.1 g/dl (14.0-18.0); IMMATURE GRANULOCYTES 0.9 % (0.0-5.0); MEAN CELL VOLUME 101.6 fL CALC (80.0-100.0); MEAN CORPUSCULAR HGB 31.4 pG CALC (26.0-32.0); MEAN CORPUSCULAR HGB CONC 30.9 g/dL CAL (32.0-36.0); RED BLOOD COUNT 3.22 mill/uL (4.70-6.10); RED CELL DISTRI WIDTH 15.6 % (11.5-15.5)
[2020-08-19 05:45] LABS: ALBUMIN 2.9 g/dL (3.2-5.0); ALKALINE PHOSPHATASE 97 u/l (38-126); ANION GAP 10 (6-22 (CALC)); BILIRUBIN, TOTAL 0.3 mg/dL (0.0-1.4); BUN 15 mg/dL (8-23); BUN/CREATININE RATIO 14 (12-20 (CALC)); CARBON DIOXIDE 26 mmol/l (22-30); CHLORIDE 106 mmol/l (95-108); CREATININE 1.1 mg/dL (0.7-1.3); GFR > 60 ML/MIN (>=60 (CALC)); GFR FOR AFR.AMER. > 60 ML/MIN (>=60 (CALC)); POTASSIUM 4.2 mmol/l (3.5-5.1); SGOT/AST 23 u/l (19-48); SODIUM 137 mmol/l (137-146); TOTAL PROTEIN 5.8 g/dL (6.3-8.2)
--- NOTE | 2020-08-19 08:06 | NUR ---
PT SITTING ON THE SIDE OF THE BED. A&O X3. NO DISTRESS NOTED. PT DENIES ANY PAIN AT THIS TIME. ASSISTED PT TO BATHROOM. PT C/O OF SLIGHT DIZZINESS. SLOW GAIT OBSERVED. DRESSING TO LFA IN PLACE DUE TO SKIN TEAR. DRESSING CDI. PT BACK TO BED. ASSESSMENT COMPLETED. DISCUSED POC. CALL LIGHT IN REACH. CONTINUE TO MONITOR.
[2020-08-19] MEDS ORDERED: SENOKOT EXTRA17.2 MG PO (10:37)
--- NOTE | 2020-08-19 11:21 | NUR ---
ORTHOSTATIC BP READINGS INITIATED AT 11:11. RESULTS GIVEN AND SHOWED TO Yesy BLANDON APRN. PT C/O OF LIGHT HEADEDNESS WHILE STANDING.
--- NOTE | 2020-08-19 16:39 | NUR ---
D/C INSTRUCTIONS GIVEN TO PT. IV INTACT UPON REMOVAL.
--- NOTE | 2020-08-19 16:49 | NUR ---
Discharge instructions given. Patient verbalizes understanding of same. Discharged in stable condition via Wheelchair to Home with staff. All belongings sent with pt.
== END 2020-08-19 16:49 | disposition home health service (06) ==
LOC: ED 17:25 → ED-I 21:00 → ED 22:55 → MS2 22:57
PROVIDERS: Family Medicine; Nurse Practitioner; ADMIT Internal Medicine; ATTEND Internal Medicine
DX: I95.9 Hypotension, unspecified (principal); R53.83 Other fatigue; R53.1 Weakness; I12.9 Hypertensive chronic kidney disease with stage 1 through stage 4 chronic kidney disease, or unspecified chronic kidney disease; E11.22 Type 2 diabetes mellitus with diabetic chronic kidney disease; E11.40 Type 2 diabetes mellitus with diabetic neuropathy, unspecified; N18.30 Chronic kidney disease, stage 3 unspecified; C34.90 Malignant neoplasm of unspecified part of unspecified bronchus or lung; K59.00 Constipation, unspecified; E78.5 Hyperlipidemia, unspecified; J44.9 Chronic obstructive pulmonary disease, unspecified; K26.9 Duodenal ulcer, unspecified as acute or chronic, without hemorrhage or perforation; Z95.820 Peripheral vascular angioplasty status with implants and grafts; Z92.3 Personal history of irradiation; Z87.891 Personal history of nicotine dependence; Z79.4 Long term (current) use of insulin; Z79.899 Other long term (current) drug therapy; Z20.822 Contact with and (suspected) exposure to COVID-19

== ENCOUNTER 2020-10-19 | Emergency (ER) | payer MEDICARE ==
[~2020-10-19] MED LIST changes: +MIRALAX17 GM
[2020-10-19 21:25] LABS: HEMATOCRIT 39.5 % (39.0-50.0); IMMATURE GRANULOCYTES 0.4 % (0.0-5.0); MEAN CORPUSCULAR HGB 33.8 pG CALC (26.0-32.0); MEAN CORPUSCULAR HGB CONC 33.4 g/dL CAL (32.0-36.0); NEUT# 4.71 thou/uL (1.82-7.42); RED BLOOD COUNT 3.91 mill/uL (4.70-6.10)
[2020-10-19 21:30] LABS: HEMOGLOBIN 13.2 g/dl (14.0-18.0)
[2020-10-19 21:44] LABS: ALBUMIN 3.9 g/dL (3.2-5.0); ALKALINE PHOSPHATASE 125 u/l (38-126); AMYLASE 76 u/l (30-110); ANION GAP 16 (6-22 (CALC)); BILIRUBIN, TOTAL 0.8 mg/dL (0.0-1.4); BUN 21 mg/dL (8-23); BUN/CREATININE RATIO 13 (12-20 (CALC)); CARBON DIOXIDE 20 mmol/l (22-30); CHLORIDE 101 mmol/l (95-108); CREATININE 1.6 mg/dL (0.7-1.3); GFR 42 ML/MIN (>=60 (CALC)); GFR FOR AFR.AMER. 50 ML/MIN (>=60 (CALC)); LIPASE 41 u/l (23-300); POTASSIUM 4.5 mmol/l (3.5-5.1); SGOT/AST 24 u/l (19-48); SODIUM 133 mmol/l (137-146); TOTAL PROTEIN 7.4 g/dL (6.3-8.2)
[2020-10-20] MEDS ORDERED: [UNRECOGNIZED DRUG - OTHER] PO (03:39)
[2020-10-20] MEDS ORDERED: GABAPENTIN600 MG PO (16:37)
[2020-10-20] MEDS ORDERED: ATENOLOL50 MG PO (16:39)
[2020-10-20] MEDS ORDERED: ATORVASTATIN CA10 MG PO (16:41)
[2020-10-20] MEDS ORDERED: PROAIR HFA108 MCG/AC IN (16:42)
[2020-10-20] MEDS ORDERED: TRIAMCINOLON0.11 EX (16:46)
[2020-10-20] MEDS ORDERED: VOLTAREN1%GEL TOP (16:47)
[2020-10-20] MEDS ORDERED: STIOLTO RESPIMA1 AER IN (16:48)
[2020-10-20] MEDS ORDERED: LORTAB 1010 MG PO (16:50)
[2020-10-20] MEDS ORDERED: PROTONIX40 M2 PO (16:51)
[2020-10-20] MEDS ORDERED: LANTUS SOL100 UNIT/M SC (16:52)
[2020-10-20] MEDS ORDERED: LINZESS72 MCG PO (16:53)
== END 2020-10-20 04:23 | disposition home or self-care (01) ==
PROVIDERS: Emergency Medicine
DX: R10.9 Unspecified abdominal pain (principal); I10 Essential (primary) hypertension; E11.40 Type 2 diabetes mellitus with diabetic neuropathy, unspecified; C34.90 Malignant neoplasm of unspecified part of unspecified bronchus or lung; Z85.828 Personal history of other malignant neoplasm of skin; Z92.3 Personal history of irradiation; Z92.21 Personal history of antineoplastic chemotherapy; Z79.4 Long term (current) use of insulin
CPT/HCPCS: Q9967

== ENCOUNTER 2020-10-20 14:47 | Observation (INO) | payer MEDICARE ==
[~2020-10-20] VITALS: Ht 175.3 cm; Wt 84.8 kg
[~2020-10-20 14:47] MED LIST changes: +[UNRECOGNIZED DRUG - OTHER] PO
--- NOTE | 2020-10-20 14:55 | NUR ---
PATIENT ARRIVED ON FLOOR AT THIS TIME VIA WHEELCHAIR ACCOMPANIED WITH DAUGHTER. PATIENT WAS TEARFUL AND COMPLAINING OF ABDOMINAL PAIN. PATIENT WAS UNDRESSED AND PLACED IN BED AT THIS TIME AND IV STARTED AND A #22 AUTOGUARD PLACED IN THE RIGHT WRIST. PATIENT GIVEN VERBAL RELAXATION QUES AND PATIENT DID RESPOND WELL. TALENT REP DONE AT THIS TIME AND TELE MONITORED PLACED AND ED IS MONITORING. PATIENT DID ARRIVE WITH A SMALL SKIN TEAR ON RIGHT ELBOW THAT WAS OBTAINED DURING A RECENT FALL AT HOME. PATIENT SAFETY MEASURES AND ROOM ORIENTATION GIVEN AND PATIENT VERBALIZES UNDERSTANDING. PATIENT BED ALARM WAS SET AT THIS TIME. PATIENT BOWEL SOUNDS ARE NOTED FAINT AND HYPOACTIVE AT THIS TIME. PATIENT STATED HE HAS A SMALL BOWEL MOVEMENT ON 10/19/20 AND IT WAS HARD AND TARRY IN COLOR. PATIENT STATED THAT HE HAS NO ISSUES WITH EATING HOWEVER PATIENT STATES THAT HE HASN'T EATEN MUCH FOR A FEW DAYS. PATIENT SIDERAILS ARE UP X 2 CALL LIGHT AND PERSONAL ITEMS ARE WITHIN REACH.
[2020-10-20 15:20] VITALS: BP 146/86
--- NOTE | 2020-10-20 15:35 | NUR ---
PATIENT GIVEN AT THIS TIME 2MG OF MORPHINE IV FOR ABDOMINAL PAIN OF "8" OUT OF THE PAIN SCALE 0-10. SIDERAILS ARE UP CALL LIGHT WITHIN REACH AND PATIENT ADVISED TO CALL FOR NURSE IF HE NEEDS ANYTHING. BED ALARM WAS ACTIVATED AT THIS TIME.
[2020-10-20 15:37] LABS: HEMOGLOBIN 12.2 g/dl (14.0-18.0); IMMATURE GRANULOCYTES 0.4 % (0.0-5.0); MEAN CELL VOLUME 102.8 fL CALC (80.0-100.0); MEAN CORPUSCULAR HGB 33.9 pG CALC (26.0-32.0); NEUT# 4.73 thou/uL (1.82-7.42); RED BLOOD COUNT 3.6 mill/uL (4.70-6.10); RED CELL DISTRI WIDTH 14.3 % (11.5-15.5)
[2020-10-20 16:06] LABS: ALBUMIN 3.8 g/dL (3.2-5.0); BILIRUBIN, TOTAL 0.7 mg/dL (0.0-1.4); CREATININE 1.8 mg/dL (0.7-1.3); POTASSIUM 4.3 mmol/l (3.5-5.1); TOTAL PROTEIN 7.4 g/dL (6.3-8.2)
[2020-10-20] MEDS ORDERED: GABAPENTIN600 MG PO (16:37)
[2020-10-20] MEDS ORDERED: ATENOLOL50 MG PO (16:39)
--- NOTE | 2020-10-20 16:39 | NUR ---
PATIENT RESTING IN BED AT THIS TIME. PATIENT STATES HIS PAIN LEVEL IS NOW A "2" OUT OF THE PAIN SCALE OF 0-10. PATIENT STATED THE "PAIN MEDICATION WORKED". PATIENT IS ALERT AND ORIENTED AND SIDERAILS ARE UP X 2 AND CALL LIGHT IS WITHIN REACH. BED ALARM IS ACTIVATED AT THIS TIME.
[2020-10-20] MEDS ORDERED: ATORVASTATIN CA10 MG PO (16:41)
[2020-10-20] MEDS ORDERED: PROAIR HFA108 MCG/AC IN (16:42)
[2020-10-20] MEDS ORDERED: TRIAMCINOLON0.11 EX (16:46)
[2020-10-20] MEDS ORDERED: VOLTAREN1%GEL TOP (16:47)
[2020-10-20] MEDS ORDERED: STIOLTO RESPIMA1 AER IN (16:48)
[2020-10-20] MEDS ORDERED: LORTAB 1010 MG PO (16:50)
[2020-10-20] MEDS ORDERED: PROTONIX40 M2 PO (16:51)
[2020-10-20] MEDS ORDERED: LANTUS SOL100 UNIT/M SC (16:52)
[2020-10-20] MEDS ORDERED: LINZESS72 MCG PO (16:53)
[2020-10-20 19:00] VITALS: BP 150/87
--- NOTE | 2020-10-20 19:30 | NUR ---
REPORT FROM MILVIA MENEZES. PT NOTED RESTING IN BED WITH EYES CLOSED. PT WAKES EASILY. ALERT AND ORIENTED. NO APPARENT DISTRESS NOTED. RESPIRATIONS EVEN AND UNLABORED. PT DENIES ANY PAIN OR DISCOMFORT AT THIS TIME. LINEN KEEPER IN PLACE. IV SITE APPEARS HEALTHY WITH IV FLUIDS INFUSING. DISCUSSED POC. PT VERBALIZED UNDERSTANDING. CALL LIGHT WITHIN REACH. WILL CONTINUE TO MONITOR.
[2020-10-20 20:11] LABS: URINE BILIRUBIN - DIPSTICK NEGATIVE (NEGATIVE); URINE BLOOD DIPSTICK NEGATIVE (NEGATIVE); URINE CLARITY CLEAR; URINE COLOR YELLOW; URINE GLUCOSE - DIPSTICK NEGATIVE (NEGATIVE); URINE KETONE NEGATIVE (NEGATIVE); URINE LEUK ESTERASE NEGATIVE (Negative); URINE NITRITE - DIPSTICK NEGATIVE (Negative); URINE PH 7.5 (4.5-8.0); URINE PROTEIN - DIPSTICK TRACE mg/dL (NEG-TRACE); URINE SPECIFIC GRAVITY 1.015; URINE UROBILINOGEN - DIPSTICK 0.2 E.U./dL (0.2)
--- NOTE | 2020-10-20 20:33 | NUR ---
ACCUCHECK 66 AT THIS TIME. ASYMPTOMATIC. JUICE AND SNACK PROVIDED AT THIS TIME.
--- NOTE | 2020-10-20 23:44 | NUR ---
ASSISTED PT AT BEDSIDE WITH URINAL. PT VOIDED WITHOUT DIFFICULTY. MEDICATED FOR ABD PAIN 5/10 WITH PRN LORTAB. PT DENIES ANY OTHER CURRENT WANTS OR NEEDS. IV SITE APPEARS HEALTHY WITH IVF INFUSING. RESOURCE CENTER TEACHER IN PLACE. CALL LIGHT WITHIN REACH. WILL CONTINUE TO MONITOR.
[2020-10-21] VITALS (7 sets, daily range): BP systolic 139–167; BP diastolic 83–95
--- NOTE | 2020-10-21 03:47 | NUR ---
ASSISTED PT TO BSC. PT VOIDED WITHOUT DIFFICULTY. PT VERY ANXIOUS C/O ABD PAIN AND SOB. O2 SATS 100% ON RA. ASSISTED PT BACK INTO BED. MEDICATED WITH PRN MORPHINE. ENCOURAGED DEEP BREATHING. WATER PROVIDED AT THIS TIME. CALL LIGHT WITHIN REACH. WILL CONTINUE TO MONITOR.
[2020-10-21 05:30] LABS: HEMATOCRIT 38.1 % (39.0-50.0); HEMOGLOBIN 12.4 g/dl (14.0-18.0); MEAN CELL VOLUME 104.4 fL CALC (80.0-100.0); MEAN CORPUSCULAR HGB CONC 32.5 g/dL CAL (32.0-36.0); RED BLOOD COUNT 3.65 mill/uL (4.70-6.10); RED CELL DISTRI WIDTH 14.1 % (11.5-15.5)
[2020-10-21 05:42] LABS: ANION GAP 12 (6-22 (CALC)); BUN 17 mg/dL (8-23); BUN/CREATININE RATIO 13 (12-20 (CALC)); CARBON DIOXIDE 23 mmol/l (22-30); CHLORIDE 106 mmol/l (95-108); CREATININE 1.3 mg/dL (0.7-1.3); GFR 53 ML/MIN (>=60 (CALC)); GFR FOR AFR.AMER. > 60 ML/MIN (>=60 (CALC)); MAGNESIUM 1.9 mg/dL (1.6-2.3); POTASSIUM 4.3 mmol/l (3.5-5.1); SODIUM 136 mmol/l (137-146)
--- NOTE | 2020-10-21 07:14 | NUR ---
PATIENT AWAKE AND SITTING UP IN BED AT THIS TIME. PATIENT IS SLIGHTLY ANXIOUS, DENIES PAIN. STORAGE MANAGER DONE SEE INTERVENTIONS. TELE MONITOR ON AND BEING MONITORED BY ED. SIDERAILS ARE UP X2 CALL LIGHT AND PERSONAL ITEMS WITHIN REACH. LUNG SOUNDS REMAIN DIMINISHED IN ALL OLSON. RESPIRATIONS ARE NON-LABORED.
--- NOTE | 2020-10-21 10:00 | NUR ---
BILL IS RESTING WITH EYES CLOSED AT THIS TIME. RESPIRATIONS ARE EASY AND UNLABORED. SIDERAILS ARE UP X 2 CALL LIGHT AND PERSONAL ITEMS WITHIN REACH.
--- NOTE | 2020-10-21 11:47 | NUR ---
PATIENT WOKE UP AND WAS VERY ANXIOUS ROLLING AROUND ON BED STATING HE CAN'T GET SETTLED. PATIENT STATED "JUST SHOOT ME IN THE HEAD" PATIENT GIVEN SOME RELAXATION TECHNIQUES AND DID CALM DOWN AND PATIENT STATED " I JUST CAN'T LAY HERE" ASKED PATIENT IF HE WOULD LIKE TO GET UP PATIENT REPLIED "NO" PATIENT STATED I NEED MORE PAIN MED. PATIENT MEDICATED WITH LORITAB 10MG AT THIS TIME. PATIENT GIVEN WARM BLANKET AND PATIENT DID RELAX AT THIS TIME.
--- NOTE | 2020-10-21 12:00 | NUR ---
PATIENT RESTING WITH EYES CLOSED AT THIS TIME. RESPIRATION EASY AND UNLABORED AT THIS TIME CALL LIGHT WITHIN REACH SIDERAILS UP X2.
--- NOTE | 2020-10-21 15:36 | NUR ---
PT SITTING ON THE SIDE OF THE BED "WEEPING" WANTING TO KNOW WHAT IS WRONG WITH ME" EXPLAINED THAT WE CAN'T PUT HIM TO SLEEP" ENCOURAGED PT TO RELAX.
--- NOTE | 2020-10-21 16:00 | NUR ---
PT IS RELAXING IN BED WITH NO DISTRESS NOTED. FAMILY IN TO VISIT WITH PT.
--- NOTE | 2020-10-21 16:27 | NUR ---
FAMILY WANTING TO VISIT WITH PT. GAVE MEDICATION FOR PAIN AND DISCOMFORT
--- NOTE | 2020-10-21 17:20 | NUR ---
PT'S FAMILY IN TO VISIT . WANTING TO GET INFORMATION FROM THE DR AND HOME AND FAMILY LIVING PROFESSOR. RE: WHAT TO DO WITH THIS PT. EITHER HELP OR SEND SOMEPLACE THAT CAM.
--- NOTE | 2020-10-21 20:30 | NUR ---
PT RESTING IN BED AT TIME OF ASSESSMENT. UPON WAKING PT HE BECAME VERY ANXIOUS AND WAS COMPLAINING ABOUT LEFT FLANK PAIN. NEW ORDER RECEIVED FROM DR. ELIAS FOR PT TO RECEIVE FENTANYL PATCH 25MCG Q 72HRS. PATCH APPLIED TO RUI AND SECURED WITH TRANSPARENT FILM. PT TOLERATED WELL. LUNGS DIMINSHED IN LOWER BASES, CTA IN UPPER LOBES. BREATHING IS EVEN AND UNLABORED AT THIS TIME. BS ACTIVE X 4 QUADS. IV REMAINS #22 TO R HAND RECIVING CONTINOUS IV FLUIDS. NO S/S OF INFECTION OR INFILTRATION NOTED TO IV SITE. WILL CONTINUE TO MONITOR
[2020-10-22] VITALS (9 sets, daily range): BP systolic 152–168; BP diastolic 77–109
--- NOTE | 2020-10-22 00:36 | NUR ---
PT RESTING IN BED WITH EYES CLOSED. NO S/S OF PAIN OR ANXIETY NOTED. BREATHING EVEN AND UNLABORED. WILL MONITOR
--- NOTE | 2020-10-22 01:30 | NUR ---
BLOOD PREESSURE READING 160'S/90'S AND PT IS ST-116. THIS NURSE CALLED HARVEST CONTRACTOR PHYSICIAN TO WHICH THERE WAS NO ANSWER. VOICEMAIL LEFT WITH PERTINENT INFORMATION, PENDING RETURN CALL AT THIS TIME.
--- NOTE | 2020-10-22 04:23 | NUR ---
PT RESTING QUIETLY IN BED WITH HIS EYES CLOSED. TELE SHOWED ST-102. WHEN DE ALCHOLIZER WENT AROUND TO CHECK VS PT BECAME VERY ANXIOUS UPON AWAKENING PULSE WENT UP TO 118 AND B/P RECORDED AT 167/94. NO RETURN CALL RECEIVED FROM LOADER TECHNICIAN PHYSICIAN. SPOKE WITH AUTOCAD DESIGNER WHO ADVISED TO MEDICATE PT FOR ANXIETY AND CONTINUE TO MONITOR. PT AGAIN RESTING QUIETLY WITH EYES CLOSED. NO S/S OF ANXIETY NOTED. WILL PASS ON TO ONCOMING SHIFT TO SPEAK WITH ROUNDING PHYSICIAN REGARDING B/P AND PULSE. WILL MONITOR.
[2020-10-22 06:21] LABS: HEMATOCRIT 39.9 % (39.0-50.0); MEAN CELL VOLUME 104.5 fL CALC (80.0-100.0); MEAN CORPUSCULAR HGB CONC 32.6 g/dL CAL (32.0-36.0); RED BLOOD COUNT 3.82 mill/uL (4.70-6.10); RED CELL DISTRI WIDTH 13.8 % (11.5-15.5)
[2020-10-22 06:39] LABS: ANION GAP 13 (6-22 (CALC)); BUN 10 mg/dL (8-23); BUN/CREATININE RATIO 9 (12-20 (CALC)); CARBON DIOXIDE 23 mmol/l (22-30); CHLORIDE 105 mmol/l (95-108); CREATININE 1.2 mg/dL (0.7-1.3); GFR 58 ML/MIN (>=60 (CALC)); GFR FOR AFR.AMER. > 60 ML/MIN (>=60 (CALC)); POTASSIUM 4.6 mmol/l (3.5-5.1); SODIUM 136 mmol/l (137-146)
--- NOTE | 2020-10-22 08:00 | NUR ---
PT RESTING IN THE BED , ALERT, 02 RA. IV INFUSING. DENIES PAIN AT THIS TIME. PT REQUEST HIS BED BE MADE TIDY. REPOSITIOEND FOR COMFORT, SIDE RAILS UP CALL LIGHT IN REACH BED LOCKED IN LOW POSITION, WILL CONTINUE TO MONIOTR THE PATIENT. NO DISTRESS NOTED AT THIS TIME.
--- NOTE | 2020-10-22 10:41 | NUR ---
PROVIDER MADE AWARE OF PT B/P STATUS. PT GIVEN MEDICATION TO HELP CALM HIM DOWN. PT IS CRYING ON AND OFF. PT TOILETED AND REPOSITION. RESTING IN THE BED AT THIS TIME.WILL CONTINUE TO MONIOTR.
--- NOTE | 2020-10-22 11:59 | NUR ---
PT RESTING COMFORTABLE NO DISTRESS NOTED AT THIS TIME. WILL CONTINUE TO MONIOTR THE PATIENT.
--- NOTE | 2020-10-22 15:03 | NUR ---
UP OUT OF THE BED TO THE BEDSIDE COMMODE. PT VOIDED 300 CC OF CLEAR YELLOW URINE. BACK TO BED. C/O PAIN "EVERYWERE", MED PE3R ORDER. REPOSITIONED COMFORT. CALL LIGHT IN REACH, WILL CONTINUE TO MONITOR THE PATIENT.
--- NOTE | 2020-10-22 16:12 | NUR ---
PT RESTING VERY COMFORTABLE ON HIS LEFT SIDE WITH HIS EYES CLOSED. IV INFUSING. NO DISTRESS NOTED AT THIS TIME. WILL CONTINUE TO MONIOTR THE PATIENT.
--- NOTE | 2020-10-22 20:00 | NUR ---
PATIENT ALERT AND IN BED. HE IS MOANING ANS GROINING OF PAIN. HE SAID PAIN IS IN THE ABD. FENT PATCH RUI 25MG. IV STILL REMAINS IN RIGHT WRIST NORMAL SALINE RUNNING AT 75 ML/HR. BED IN LOWEST POSITION. ASSESSMENT COMPLETE. CALL LIGHT WITHIN RANGE. WILL CONTINUE TO MONITOR
--- NOTE | 2020-10-22 23:40 | NUR ---
PT IV HAD BEEN DISLODGE DUE TO HIM TURNING IN THE BED. IV CATH STILL INTACT
--- NOTE | 2020-10-22 23:50 | NUR ---
NEW IV LOCATION RIGHT AC 22G. NORMAL SALINE CONTINUES RUNNING AT 75ML/HR. PT REMAINS SLEEPING AND MOANING WITH EVERY MOVEMENT. WILL CONTINUE TO MONITOR
--- NOTE | 2020-10-23 | NUR ---
PT GETS OUT OF BED AGAIN AND ALARM GOES OF. OFFERED TOILETING AND HE SITS ON THE TOILET. ASK PT IF HE IS IN PAIN HE SAYS YES. PRN PAIN MEDICATION GIVEN. WILL CONTINUE TO MONITOR
--- NOTE | 2020-10-23 | NUR ---
PT REMAINS SLEEPING IN THE BED. HE REPOSTION HIMSELF IN THE BED MOANING AND GROANING. PATCH STILL REMIANS RUI. CALL LIGHT WITHIN RANGE
[2020-10-23 04:00] VITALS: BP 139/98
--- NOTE | 2020-10-23 04:00 | NUR ---
PT RESTING PEACEFULLY. PRN PAIN MEDS GIVEN WITH POSITIVE EFFECT. IV INTACT. WILL CONTINUE TO MONITOR
[2020-10-23 06:07] LABS: HEMATOCRIT 41.2 % (39.0-50.0); HEMOGLOBIN 13.3 g/dl (14.0-18.0); MEAN CORPUSCULAR HGB 33.6 pG CALC (26.0-32.0); MEAN CORPUSCULAR HGB CONC 32.3 g/dL CAL (32.0-36.0); RED BLOOD COUNT 3.96 mill/uL (4.70-6.10); RED CELL DISTRI WIDTH 13.6 % (11.5-15.5)
[2020-10-23 06:31] LABS: ANION GAP 16 (6-22 (CALC)); BUN 9 mg/dL (8-23); BUN/CREATININE RATIO 8 (12-20 (CALC)); CARBON DIOXIDE 21 mmol/l (22-30); CHLORIDE 103 mmol/l (95-108); CREATININE 1.2 mg/dL (0.7-1.3); GFR 58 ML/MIN (>=60 (CALC)); GFR FOR AFR.AMER. > 60 ML/MIN (>=60 (CALC)); POTASSIUM 4.5 mmol/l (3.5-5.1); SODIUM 135 mmol/l (137-146)
[2020-10-23 07:22] VITALS: BP 157/90
--- NOTE | 2020-10-23 08:00 | NUR ---
SHIFT CHANGE REPORT, PT SLEEPING BUT AROUSES TO VERBAL STIMULI, MOANING AND GROANING BUT DENIES PAIN, TELE MONITOR IN PLACE, IVF INFUSING, CALL MARTINEZ IN REACH AND BED LOCKED IN LOWEST POSITION. WILL CONTINUE TO MONITOR AND ADDRESS NEEDS.
--- NOTE | 2020-10-23 09:00 | NUR ---
PT GROSSLY ANXIOUS, RESTLESS AND CRYING TEARS IN ABD PAIN @ 10/10, CONDITION ADDRESSED, WILL CONTINUE TO MONITOR.
[2020-10-23 11:10] VITALS: BP 122/82
--- NOTE | 2020-10-23 13:18 | NUR ---
SLEEPING AT THIS TIME, GOT OOB 20 MINS AGO AND APPEARED SLIGHTLY CONFOSED, OFFERED BRP AND REFUSED, REORIENTED AND ASSISTED BACK TO BED, ALARM ON AND CALL MARTINEZ IN REACH.
[2020-10-23 14:50] VITALS: BP 128/64
--- NOTE | 2020-10-23 17:16 | NUR ---
MOANING AND GROANING AT THIS TIME BUT IS DENYING ANY PAIN, ASSISTED TO BSC X 3 WITHIN 15 MINS BUT ONLY URINATED. SUPPOSITORY ADMINISTERED,SETTLED IN BED NOW AND BEING MONITORED, ALARM ON
[2020-10-23 19:50] VITALS: BP 156/83
--- NOTE | 2020-10-23 20:00 | NUR ---
PT IN BED RESTLESS. HE GETS UP AND IS REDIRECTED BACK TO BED. THEN HE STARTS CRYING. ASK PT IF HE IS IN PAIN HE SAYS YES. BED ALARM ON. CALL LIGHT AND TABLE NEAR PT. PT HAD BOWEL MOVEMENT TODAY. STOOL SENT TO LAB FOR CULT. IV FLUIDS CONTINUE. IV LOCATION REINFORCED PT TUGGED ON IT TRYING TO REMOVE WHEN HE GOT UPSET. WILL BE GIVING PAIN AND ANXIETY MEDICATION. WILL CONTINUE TO MONITOR
[2020-10-24] VITALS: BP 153/94
--- NOTE | 2020-10-24 | NUR ---
PT GETTING UP TO TRY TO GO TO THE BATHROOM. HE IS UPSET ABOUT SOMTHING. ASK IF HE HAS PAIN HE SAYS YES GENERALIZED AREA. [employer]IST IN ROOM FINISH ASSITING PT TO THE BATHROOM. BED ALARM REMAINS ON. CALL LIGHT AND TABLE NEXT TO PT. WILL CONTINUE TO MONITOR
[2020-10-24 04:00] VITALS: BP 184/92
--- NOTE | 2020-10-24 04:00 | NUR ---
PT TRYING TO GET UP ON HIS OWN AGAIN. VISUAL UPSET AND CRYING HE WANTS TO GO TO THE BATHROOM. HELP PT TO BED SIDE COMMODE AND ASSIST BACK TO BED. ASK PT IF HE WAS IN PAIN NO ANSWER GIVEN HE REMAINS UPSET TRYING TO GET COMFORTABEL IN THE BED. GETTING HIM SETTLED BACK IN AND TUCKED IN. WILL CONTINUE TO MONITOR
[2020-10-24 05:40] LABS: HEMATOCRIT 41.5 % (39.0-50.0); HEMOGLOBIN 13.3 g/dl (14.0-18.0); MEAN CELL VOLUME 104.8 fL CALC (80.0-100.0); MEAN CORPUSCULAR HGB 33.6 pG CALC (26.0-32.0); RED BLOOD COUNT 3.96 mill/uL (4.70-6.10); RED CELL DISTRI WIDTH 13.5 % (11.5-15.5)
[2020-10-24 06:08] LABS: ANION GAP 14 (6-22 (CALC)); BUN 11 mg/dL (8-23); BUN/CREATININE RATIO 9 (12-20 (CALC)); CARBON DIOXIDE 22 mmol/l (22-30); CHLORIDE 103 mmol/l (95-108); CREATININE 1.2 mg/dL (0.7-1.3); GFR 58 ML/MIN (>=60 (CALC)); GFR FOR AFR.AMER. > 60 ML/MIN (>=60 (CALC)); POTASSIUM 4.1 mmol/l (3.5-5.1); SODIUM 135 mmol/l (137-146)
[2020-10-24 07:05] VITALS: BP 143/81
--- NOTE | 2020-10-24 07:05 | NUR ---
PATIENT RESTING IN BED AT THIS TIME EYES CLOSED RESPIRATIONS EASY AND UNLABORED. PATIENT AWOKEN AND RN ASSESMENT DONE AT THIS TIME SEE INTERVENTIONS. PATIENTS STATES HIS PAIN IS A "2" AT THIS TIME. PATIENT REMAINS SLIGHTY ANXIOUS. CALL LIGHT IS WITHIN REACH SIDERAILS ARE UP X 2 AND BED ALARM ACTIVATED AT THIS TIME.
[2020-10-24 10:43] VITALS: BP 112/78
--- NOTE | 2020-10-24 11:00 | NUR ---
DR. GODINEZ IN TO VISIT WITH PATIENT AT THIS TIME AND DISCUSSED A DNR STATUS WITH HIM AND PATIENT STATED THAT HE WANTS A DNR ORDER AND HOSPICE CONSULT HAS BEEN PLACED BY CASE MANAGEMENT.
--- NOTE | 2020-10-24 11:45 | NUR ---
PT. STATED DID NOT WANT ANYTHING TO DRINK, EVEN AFTER EXPLAINED HE NEEDED TO DRINK IT BECAUSE IT HAS MED. IN IT. PT. STATED I DON'T WANT ANYTHING AND TOLD ME TO GO AWAY.
--- NOTE | 2020-10-24 12:00 | NUR ---
PATIENT RESTING IN BED AT THIS TIME. PATIENT SIDERAILS ARE UP X2 CALL LIGHT WITHIN REACH. PATIENT STATES HIS PAIN IS A "4" AND WAS PREVIOUSLY MEDICATED. WILL CONTINUE TO MONITOR.
--- NOTE | 2020-10-24 12:13 | NUR ---
1210: MORPHINE GIVEN IV FOR C/O "...ACHYNESS ALL OVER"
--- NOTE | 2020-10-24 13:35 | NUR ---
1220: PT. DOWN TO CAT SCAN VIA W/C 1300: RETURNED TO FLOOR AND PLACED BACK IN HIS CHAIR IN HIS ROOM WITHOUT INCIDENCE.
--- NOTE | 2020-10-24 13:36 | NUR ---
HOSPICE NURSE IN TO SEE PATIENT AT THIS TIME.
[2020-10-24] MEDS ORDERED: FENTANYL50 MCG/HR TD (14:45)
[2020-10-24 14:49] VITALS: BP 119/81
--- NOTE | 2020-10-24 16:30 | NUR ---
PATIENT IS D/C TO HOSPICE CARE AT THIS TIME. HOSPICE NURSE HERE AND SETTING UP TRANSPORTATION AT THIS TIME. PATIENT IS IN BED RESTING WITH EYES CLOSED RESPIRATIONS EASY AND UN-LABORED AT THIS TIME. WAS NOTIFIED OF D/C TO HOSPICE
[2020-10-24 19:00] VITALS: BP 145/83
--- NOTE | 2020-10-24 19:45 | NUR ---
PT SOUNDED SAFETY ALARM, HE WAS SITTING ON THE EDGE OF RECLINER STATING "I NEED TO PEE." WE ASSISTED PT TO BSC AND THEN HE STATED THAT HE WANTED TO LAY DOWN. WE ASSISTED HIM TO THE BED WHERE THE BED ALARM WAS PLACED. PT STATED "THIS IS REDICULOUS I WANT TO GO TO THE BATHROOM," BUT PT WAS EXTREMELY WEAK UPON AMBULATING. CALL LIGHT AT SIDE. I ASKED HIM IF HE WAS HAVING ANY PAIN, HE DENIED.
--- NOTE | 2020-10-24 20:53 | NUR ---
PT TRANSFERRED OFF [facility] VIA STRETCHER ACCOMPANIED BY [facility]LEY TRANSPORT STAFF. PT DENIED PAIN JUST PRIOR TO TRANSPORT AND WAS STABLE, BUT APPEARED ANXIOUS AND CONFUSED ABOUT WHERE HE WAS GOING AND WHY. ATTEMPTS WERE MADE TO REORIENT HIM TO CIRCUMSTANCE. PT SELF AMBULATED PIVOTING FROM THE BED TO THE STRETCHER, BUT IS VERY WEAK. BELONGINGS WERE SENT WITH PT BY MYSELF AND TWO AIDS.
== END 2020-10-24 20:53 | disposition hospice, inpatient (51) ==
LOC: MS2 14:47
PROVIDERS: Nurse Practitioner; ADMIT Internal Medicine; ATTEND Internal Medicine
DX: R10.12 Left upper quadrant pain (principal); R10.32 Left lower quadrant pain; G89.29 Other chronic pain; R93.5 Abnormal findings on diagnostic imaging of other abdominal regions, including retroperitoneum; C34.32 Malignant neoplasm of lower lobe, left bronchus or lung; C79.9 Secondary malignant neoplasm of unspecified site; K59.00 Constipation, unspecified; E78.5 Hyperlipidemia, unspecified; E11.22 Type 2 diabetes mellitus with diabetic chronic kidney disease; I12.9 Hypertensive chronic kidney disease with stage 1 through stage 4 chronic kidney disease, or unspecified chronic kidney disease; N18.30 Chronic kidney disease, stage 3 unspecified; J44.9 Chronic obstructive pulmonary disease, unspecified; N17.9 Acute kidney failure, unspecified; F41.9 Anxiety disorder, unspecified; Z51.5 Encounter for palliative care; Z66 Do not resuscitate; Z87.11 Personal history of peptic ulcer disease; Z87.891 Personal history of nicotine dependence; Z95.820 Peripheral vascular angioplasty status with implants and grafts; Z20.822 Contact with and (suspected) exposure to COVID-19
CPT/HCPCS: G0378; G0379; Q9967